=== PATIENT | male | born 1960 | race Caucasian/White ===

== ENCOUNTER 2017-03-03 09:39 | Emergency (ER) | payer BC ==
[~2017-03-03] VITALS: Ht 167.6 cm; Wt 105.1 kg
[~2017-03-03 09:39] MED LIST: ALPR2TAB2 PO; CITA20TA9 PO; ESOM20CA PO; HYDR-2164 PO; HYDR1TAB73 PO; HYDR20TA20 PO; LABE100T PO; LORA0.5T2 PO; LOVA20TA71 PO; METH20TA; NICO2LOZ PO; OMEP-29 PO; TRAZ-173 PO
[2017-03-03 09:42] VITALS: TEMP 98.5; Ht 167.6 cm; Wt 105.1 kg
--- OUTSIDE RECORDS SUMMARY | 2017-03-03 09:44 | XMS REPORT | Referral Summary ---
Author Organization Unknown Address Unknown Phone Unavailable Care Team Providers Care Websphere Commerce Architect Name Role Phone Chito Bobby Primary Care Physician [phone] Encounter VC Date(s): 01/06/15 - 01/06/15 [facility] [address] [place] [address] Dr Willson [place] [id number] Discharge Diagnosis: Obesity Discharge Diagnosis: Acute depression Discharge Diagnosis: Benign essential hypertension Discharge Disposition: Home or Self Care Attending Physician: Rafael Bobby MD Admitting Physician: Rafael Bobby MD Vital Signs Most recent to 1 oldest [Reference Range]: Blood Pressure 130/90 mmHg [90-140/60-90 mmHg] (01/06/15 3:37 PM) Problem List Condition Effective Dates Status Health Status Informant Benign essential Active hypertension(Confirm ed) Degeneration of Active lumbar or lumbosacral intervertebral disc(Confirmed) Displacement of Active lumbar intervertebral disc without myelopathy (disorder)(Confirmed ) 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) Hyperlipidemia(Confi Active rmed) Elevated blood Active sugar(Confirmed) Low back pain Active (finding)(Confirmed) Lumbosacral Active spondylosis(Confirme d) Obesity(Confirmed) Active patient Lumbar disc Active herniation(Confirmed ) Spinal stenosis of Active lumbar region without neurogenic claudication(Confirm ed) Thoracic or Active lumbosacral neuritis or radiculitis, unspecified(Confirme d) Allergies, Adverse Reactions, Alerts Substance Reaction Severity Status penicillin Hives/Skin Rash Active Medications Ambien 10 mg oral tablet 1 tabs, Oral, Bedtime (once a day), as needed for sleep, MUST LAST 30 DAYS, # 30 tabs, 0 Refill(s) Special Instructions: MUST LAST 30 DAYS Start Date: 04/20/14 Status: Ordered Fish Oil 1000 mg oral capsule 1 caps, Oral, Daily, 0 Refill(s) Start Date: 04/15/14 Status: Ordered gabapentin 300 mg oral capsule 1 caps, Oral, TID, # 90 caps, 0 Refill(s), Pharmacy: [facility] #[id number], 1 caps Oral TID Start Date: 09/14/14 Status: Ordered hydrochlorothiazide 25 mg oral tablet 1 tabs, Oral, Daily, # 90 tabs, 1 Refill(s), Pharmacy: [facility] #[id number] , 1 tabs Oral Daily Start Date: 04/16/14 Status: Ordered labetalol 100 mg oral tablet 1 tabs, Oral, BID, # 60 tabs, 0 Refill(s), Pharmacy: [facility] #[id number], 1 tabs Oral BID Start Date: 12/09/14 Status: Ordered Mevacor 20 mg oral tablet 1 tabs, Oral, Daily, # 90 tabs, 1 Refill(s), Pharmacy: [facility] #[id number] , 1 tabs Oral Daily Start Date: 10/30/14 Status: Ordered [place] 10 mg-325 mg oral tablet 1 tabs, Oral, q6hr, as needed for pain, # 30 tabs, 0 Refill(s) Start Date: 09/22/14 Status: Ordered omeprazole 20 mg oral delayed release capsule 1 caps, Oral, Daily, 0 Refill(s) Start Date: 04/15/14 Status: Ordered traMADol 50 mg oral tablet 1 tabs, Oral, q4hr, s. dillons, # 100 tabs, 0 Refill(s) Special Instructions: s. dillons Start Date: 10/26/14 Status: Ordered Victoza 18 mg/3 mL subcutaneous solution 0.6 mg, SubCutaneous, Daily, # 3 mL, 0 Refill(s), samples given to patient (Rx) Start Date: 12/08/14 Status: Ordered Results No data available for this section Immunizations No data available for this section Procedures Procedure Date Related Diagnosis Body Site Left L2-3 Transforaminal 09/30/14 Left L4-5 Transforaminal 09/15/14 Left L4-5 Transforaminal 05/12/14 Procedure/Right L4-5 transforaminal 08/19/13 Carpal tunnel release Repair/hernia1 1right inguinal hernia 1975 and 1979 left inguinal hernia 1976 umbilical herniorrhaphy-12/23/2008 Social History Social History Type Response Smoking Status Former smoker Assessment and Plan Extracted from: Title: Ambulatory Patient Education Author: Rafael Bobby MD Date: 09/12 Family Medicine Arterial Hypertension Arterial hypertension (high blood pressure ) is a condition of elevated pressure in your blood vessels. Hypertension over a long period of time is a risk factor for strokes, heart attacks, and heart failure. It is also the leading cause of kidney (renal ) failure. CAUSES In Adults -- Over 90% of all hypertension has no known cause. This is called essential or primary hypertension. In the other 10% of people with hypertension, the increase in blood pressure is caused by another disorder. This is called secondary hypertension . Important causes of secondary hypertension are: Heavy alcohol use. Obstructive sleep apnea. Hyperaldosterosim (Conn's syndrome). Steroid use. Chronic kidney failure. Hyperparathyroidism. Medications. Renal artery stenosis. Pheochromocytoma. [place]'s disease. Coarctation of the aorta. Scleroderma renal crisis. Licorice (in excessive amounts). Drugs (cocaine, methamphetamine). Your caregiver can explain any items above that apply to you. In Children -- Secondary hypertension is more common and should always be considered. -- Few women of childbearing age have high blood pressure. However, up to 10% of them develop hypertension of . Generally, this will not harm the woman. It may be a sign of 3 complications of : preeclampsia, HELLP syndrome, and eclampsia. Follow up and control with medication is necessary. SYMPTOMS This condition normally does not produce any noticeable symptoms. It is usually found during a routine exam. Malignant hypertension is a late problem of high blood pressure. It may have the following symptoms: Headaches. Blurred vision. End-organ damage (this means your kidneys, heart, lungs, and other organs are being damaged). Stressful situations can increase the blood pressure. If a person with normal blood pressure has their blood pressure go up while being seen by their caregiver, this is often termed "white coat hypertension." Its importance is not known. It may be related with eventually developing hypertension or complications of hypertension. Hypertension is often confused with mental tension, stress, and anxiety. DIAGNOSIS The diagnosis is made by 3 separate blood pressure measurements. They are taken at least 1 week apart from each other. If there is organ damage from hypertension, the diagnosis may be made without repeat measurements. Hypertension is usually identified by having blood pressure readings: Above 140/90 mmHg measured in both arms, at 3 separate times, over a couple weeks. Over 130/80 mmHg should be considered a risk factor and may require treatment in patients with diabetes. Blood pressure readings over 120/80 mmHg are called "pre-hypertension" even in non-diabetic patients. To get a true blood pressure measurement, use the following guidelines. Be aware of the factors that can alter blood pressure readings. Take measurements at least 1 hour after caffeine. Take measurements 30 minutes after smoking and without any stress. This is another reason to quit smoking it raises your blood pressure. Use a proper cuff size. Ask your caregiver if you are not sure about your cuff size. Most home blood pressure cuffs are automatic. They will measure systolic and diastolic pressures. The systolic pressure is the pressure reading at the start of sounds. Diastolic pressure is the pressure at which the sounds disappear. If you are elderly, measure pressures in multiple postures. Try sitting, lying or standing. Sit at rest for a minimum of 5 minutes before taking measurements. You should not be on any medications like decongestants. These are found in many cold medications. Record your blood pressure readings and review them with your caregiver. If you have hypertension: Your caregiver may do tests to be sure you do not have secondary hypertension (see "causes" above). Your caregiver may also look for signs of metabolic syndrome. This is also called Syndrome X or Insulin Resistance Syndrome. You may have this syndrome if you have type 2 diabetes, abdominal obesity, and abnormal blood lipids in addition to hypertension. Your caregiver will take your medical and family history and perform a physical exam. Diagnostic tests may include blood tests (for glucose, cholesterol, potassium, and kidney function), a urinalysis, or an EKG. Other tests may also be necessary depending on your condition. PREVENTION There are important lifestyle issues that you can adopt to reduce your chance of developing hypertension: Maintain a normal weight. Limit the amount of salt (sodium ) in your diet. Exercise often. Limit alcohol intake. Get enough potassium in your diet. Discuss specific advice with your caregiver. Follow a DASH diet (dietary approaches to stop hypertension). This diet is rich in fruits, vegetables, and low-fat dairy products, and avoids certain fats. PROGNOSIS Essential hypertension cannot be cured. Lifestyle changes and medical treatment can lower blood pressure and reduce complications. The prognosis of secondary hypertension depends on the underlying cause. Many people whose hypertension is controlled with medicine or lifestyle changes can live a normal, healthy life. RISKS AND COMPLICATIONS While high blood pressure alone is not an illness, it often requires treatment due to its short- and long-term effects on many organs. Hypertension increases your risk for: CVAs or strokes (cerebrovascular accident ). Heart failure due to chronically high blood pressure (hypertensive cardiomyopathy ). Heart attack (myocardial infarction ). Damage to the retina (hypertensive retinopathy ). Kidney failure (hypertensive nephropathy ). Your caregiver can explain list items above that apply to you. Treatment of hypertension can significantly reduce the risk of complications. TREATMENT For overweight patients, weight loss and regular exercise are recommended. Physical fitness lowers blood pressure. Mild hypertension is usually treated with diet and exercise. A diet rich in fruits and vegetables, fat-free dairy products, and foods low in fat and salt (sodium ) can help lower blood pressure. Decreasing salt intake decreases blood pressure in a 1/3 of people. Stop smoking if you are a smoker. The steps above are highly effective in reducing blood pressure. While these actions are easy to suggest, they are difficult to achieve. Most patients with moderate or severe hypertension end up requiring medications to bring their blood pressure down to a normal level. There are several classes of medications for treatment. Blood pressure pills (antihypertensives ) will lower blood pressure by their different actions. Lowering the blood pressure by 10 mmHg may decrease the risk of complications by as much as 25%. The goal of treatment is effective blood pressure control. This will reduce your risk for complications. Your caregiver will help you determine the best treatment for you according to your lifestyle. What is excellent treatment for one person, may not be for you. HOME CARE INSTRUCTIONS Do not smoke. Follow the lifestyle changes outlined in the "Prevention" section. If you are on medications, follow the directions carefully. Blood pressure medications must be taken as prescribed. Skipping doses reduces their benefit. It also puts you at risk for problems. Follow up with your caregiver, as directed. If you are asked to monitor your blood pressure at home, follow the guidelines in the "Diagnosis" section above. SEEK MEDICAL CARE IF: You think you are having medication side effects. You have recurrent headaches or lightheadedness. You have swelling in your ankles. You have trouble with your vision. SEEK IMMEDIATE MEDICAL CARE IF: You have sudden onset of chest pain or pressure, difficulty breathing, or other symptoms of a heart attack. You have a severe headache. You have symptoms of a stroke (such as sudden weakness, difficulty speaking , difficulty walking). MAKE SURE YOU: Understand these instructions. Will watch your condition. Will get help right away if you are not doing well or get worse. Document Released: 10/15/2006 Document Revised: 01/06/2013 Document Reviewed: ExitCare Patient Information 2014 [employer]. No follow up information was provided. Extracted from: Title: Office Visit Note Author: Rafael Bobby MD Date: 01/06/15 Assessment/Plan Acute depression To Dr. Chance Cervantes for evaluation. The patient was not interested in being seen locally. Benign essential hypertension This issue is stable and appropriate refills, lab, and f/u have been discussed. The patient reports their blood pressure has been stable at home and is not having any significant or related problems. There has been no chest pain, chest pressure, soa/ruiz. Obesity This issue is stable and appropriate refills, lab, and f/u have been discussed. Samples of victoza given. Use as directed.
--- OUTSIDE RECORDS SUMMARY | 2017-03-03 09:44 | XMS REPORT | Referral Summary ---
Author Author [facility] Organization [facility] Address Unknown Phone Unavailable Care Team Providers Care It Technician Name Role Phone Chito Bobby Primary Care Physician [phone] Encounter VC Date(s): 05/10/15 - 05/10/15 [facility], [address] [place] [id number] Discharge Diagnosis: SCREENING FOR MALIGNANT NEOPLASMS OF PROSTATE Discharge Disposition: 01-Home or Self Care Attending Physician: Rafael Bobby MD Admitting Physician: Rafael Bobby MD Vital Signs Most recent to 1 oldest [Reference Range]: Blood Pressure 120/80 mmHg [90-140/60-90 mmHg] (05/10/15 11:06 AM) Problem List Condition Effective Dates Status Health Status Informant Benign essential Active hypertension(Confirm ed) Degeneration of Active lumbar or lumbosacral intervertebral disc(Confirmed) Depression(Confirmed Active ) Displacement of Active lumbar intervertebral disc without myelopathy (disorder)(Confirmed ) Shortness of Active breath(Confirmed) GERD without Active esophagitis(Confirme d) Glossitis(Confirmed) Active 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) Hyperlipidemia(Confi Active rmed) Elevated blood Active sugar(Confirmed) Low back pain Active (finding)(Confirmed) Lumbosacral Active spondylosis(Confirme d) Medial epicondylitis Active of right elbow(Confirmed) Medial epicondylitis Active of right elbow(Confirmed) Metatarsalgia(Confir Active med) Obesity(Confirmed) Active patient Obsession(Confirmed) Active Priapism(Confirmed) Active Lumbar disc Active herniation(Confirmed ) Rhinitis Active medicamentosa(Confir med) Spinal stenosis of Active lumbar region without neurogenic claudication(Confirm ed) Thoracic or Active lumbosacral neuritis or radiculitis, unspecified(Confirme d) Tinea Active pedis(Confirmed) Allergies, Adverse Reactions, Alerts Substance Reaction Severity Status penicillin Hives/Skin Rash Active Medications CeleXA 40 mg, Oral, Daily, from pv, 0 Refill(s) Start Date: 05/10/15 Status: Ordered clindamycin 300 mg oral capsule 300 mg 1 caps, Oral, q8hr, X 7 days, # 21 caps, 0 Refill(s), Pharmacy: [facility] #[id number], 1 caps Oral q8hr,x7 days Start Date: 11/19/15 Stop Date: 11/26/15 Status: Ordered diphenhydrAMINE/lidocaine/aluminum hydroxide/magnesium hydroxide/simethicone mucous membrane susp See Instructions, Mouth Sores, Swish and spit 5cc Q6H prn mouth pain., # 120 mL , 0 Refill(s), Pharmacy: [facility] #[id number] Start Date: 11/19/15 Status: Ordered Fish Oil 1000 mg oral capsule 1 caps, Oral, Daily, 0 Refill(s) Start Date: 04/15/14 Status: Ordered hydrochlorothiazide 25 mg oral tablet See Instructions, TAKE ONE TABLET BY MOUTH ONCE A DAY, # 90 tabs, 1 Refill(s), eRx: [facility] #[id number], TAKE ONE TABLET BY MOUTH ONCE A DAY Start Date: 05/24/15 Status: Ordered labetalol 100 mg oral tablet See Instructions, TAKE ONE TABLET BY MOUTH TWICE A DAY, # 180 tabs, 1 Refill(s) , eRx: [facility] #[id number], TAKE ONE TABLET BY MOUTH TWICE A DAY Start Date: 05/13/15 Status: Ordered Mevacor 20 mg oral tablet See Instructions, TAKE ONE TABLET BY MOUTH DAILY, # 90 tabs, 1 Refill(s), eRx: [facility] #[id number], TAKE ONE TABLET BY MOUTH DAILY Start Date: 11/16/15 Status: Ordered PriLOSEC 40 mg oral delayed release capsule 40 mg 1 caps, Oral, Daily, # 90 caps, 0 Refill(s), Pharmacy: [facility] # [id number], 1 caps Oral Daily Start Date: 11/01/15 Status: Ordered traZODone 150 mg oral tablet 75 mg 0.5 tabs, Oral, Bedtime (once a day), from pv, 0 Refill(s) Start Date: 05/10/15 Status: Ordered Victoza 18 mg/3 mL subcutaneous solution 0.6 mg, SubCutaneous, Daily, # 3 mL, 1 Refill(s), samples given to patient (Rx) Start Date: 11/01/15 Stop Date: 12/31/15 Status: Ordered Vistaril 25 mg oral capsule 25 mg 1 caps, Oral, QID, as needed for anxiety, from pv doc, # 40 caps, 0 Refill (s) Start Date: 08/19/15 Status: Ordered Results Chemistry Most recent to 1 oldest [Reference Range]: PSA (wihout Reflex 1.3 ng/mL 1 Free) [0.0-3.5 (05/10/15 11:35 AM) ng/mL] 1Result Comment: AUA PSA Best Practice Guidelines: Age-Adjusted PSA Values by Ethnic Group Age Range Asians - Caucasians Americans 40-49 0-2.0 0-2.0 0-2.5 50-59 0-3.0 0-4.0 0-3.5 60-69 0-4.0 0-4.5 0-4.5 70-79 0-5.0 0-5.5 0-6.5 Immunizations No data available for this section Procedures Procedure Date Related Diagnosis Body Site Collection of venous blood by venipuncture 05/10/15 Left L2-3 Transforaminal 09/30/14 Left L4-5 Transforaminal 09/15/14 Left L4-5 Transforaminal 05/12/14 Procedure/Right L4-5 transforaminal 08/19/13 Carpal tunnel release Repair/hernia1 1right inguinal hernia 1975 and 1979 left inguinal hernia 1976 umbilical herniorrhaphy-12/23/2008 Social History Social History Type Response Smoking Status Former smoker Assessment and Plan Extracted from: Title: Ambulatory Patient Education Author: Rafael Bobby MD Date: Family Medicine Arterial Hypertension Arterial hypertension (high [...] failure. Hyperparathyroidism. Medications. Renal artery stenosis. Pheochromocytoma. [place]'s disease. Coarctation of the aorta. Scleroderma renal [...] 01/06/2013 Document Reviewed: ExitCare Patient Information 2014 [employer]. No follow up information was provided. Extracted from: Title: Office Visit Note Author: Rafael Bobby MD Date: 05/10/15 Assessment/Plan Benign essential hypertension This issue is stable and appropriate refills, lab, and f/u have been discussed. Much improved with wt loss and mood stailization. Depression This issue is stable and appropriate refills, lab, and f/u have been discussed. Seeing PV. Doing well and much better on meds. GERD without esophagitis This issue is stable and appropriate refills, lab, and f/u have been discussed. Hyperlipidemia This issue is stable and appropriate refills, lab, and f/u have been discussed. Metatarsalgia This issue is stable and appropriate refills, lab, and f/u have been discussed. Hand out given. Denies back pain. Obesity Samples and coupon given for victoza. Really likes and improves with victoza per him. Shortness of breath Anxiety? Discussed cardiac work up and consult and that was declined for now. Discussed and inhaler and that wasdeferrredfor now. CXR pending. Consider cardiac consult if not resolving, however much better per him in the last few days.
--- OUTSIDE RECORDS SUMMARY | 2017-03-03 09:44 | XMS REPORT | Referral Summary ---
Author Author [facility] Organization [facility] Address Unknown Phone Unavailable Care Team Providers Care Director Strategic Planning Name Role Phone Chito Bobby Primary Care Physician [phone] Encounter VC Date(s): 11/03/15 - 11/03/15 [facility] [id number] [address] [facility] Discharge Disposition: 01-Home or Self Care Attending Physician: Aubrey Butts MD Admitting Physician: Aubrey Butts MD Referring Physician: Aubrey Butts MD Vital Signs No data available for this section Problem List Condition Effective Dates Status Health Status Informant Benign essential Active hypertension(Confirm ed) Degeneration of Active lumbar or lumbosacral intervertebral disc(Confirmed) Depression(Confirmed Active ) Displacement of Active lumbar intervertebral disc without myelopathy (disorder)(Confirmed ) Shortness of Active breath(Confirmed) GERD without Active esophagitis(Confirme d) Glossitis(Confirmed) Active 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) Hyperlipidemia(Confi Active rmed) Elevated blood Active sugar(Confirmed) Low back pain Active (finding)(Confirmed) Lumbosacral Active spondylosis(Confirme d) Medial epicondylitis Active of right elbow(Confirmed) Metatarsalgia(Confir [...] 0 Refill(s) Start Date: 05/10/15 Status: Ordered Fish Oil 1000 mg oral capsule 1 caps, Oral, Daily, 0 Refill(s) Start Date: 04/15/14 Status: Ordered hydrochlorothiazide 25 mg oral tablet See Instructions, TAKE ONE TABLET BY MOUTH ONCE A DAY, # 90 tabs, 1 Refill(s), eRx: [facility] #[id number], TAKE ONE TABLET BY MOUTH ONCE A DAY Start Date: 05/24/15 Status: Ordered labetalol 100 mg oral tablet See Instructions, TAKE ONE TABLET BY MOUTH TWICE A DAY, # 180 tabs, 1 Refill(s) , eRx: [facility] #[id number], TAKE ONE TABLET BY MOUTH TWICE A DAY Start Date: 05/13/15 Status: Ordered Mevacor 20 mg oral tablet See Instructions, TAKE ONE TABLET BY MOUTH DAILY, # 90 tabs, 1 Refill(s), eRx: [facility] #[id number], TAKE ONE TABLET BY MOUTH DAILY Start Date: 05/17/15 Status: Ordered PriLOSEC 40 mg oral delayed release capsule 40 mg 1 caps, Oral, Daily, # 90 caps, 0 Refill(s), Pharmacy: [facility] # [id number], 1 caps Oral Daily Start Date: 11/01/15 [...] (s) Start Date: 08/19/15 Status: Ordered Results No data available for [...] Smoking Status Former smoker Assessment and Plan No data available for this section
--- OUTSIDE RECORDS SUMMARY | 2017-03-03 09:44 | XMS REPORT | Referral Summary ---
Author Author [facility] Organization [facility] Address Unknown Phone Unavailable Care Team Providers Care Manager Community Outreach Name Role Phone Michellegiovanna Chito Primary Care Physician [phone] Encounter [facility] [id number] Date(s): 12/27/15 - 12/27/15 [facility] [address] [facility] [address] [place], [place] [address] Discharge Diagnosis: Medial epicondylitis of right elbow Discharge Disposition: 01-Home or Self Care Attending Physician: Aubrey Butts MD Admitting Physician: Aubrey Butts MD Vital Signs No data available for this section Problem List Condition Effective Dates Status Health Status Informant Benign essential Active hypertension(Confirm ed) Degeneration of Active lumbar or lumbosacral intervertebral disc(Confirmed) Depression(Confirmed Active ) Displacement of Active lumbar intervertebral disc without myelopathy (disorder)(Confirmed ) Shortness of Active breath(Confirmed) GERD without Active esophagitis(Confirme d) Glossitis(Confirmed) 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) Hyperlipidemia(Confi Active rmed) Elevated blood [...] DAY, # 90 tabs, 1 Refill(s), eRx: [facility] #[id number], TAKE ONE TABLET BY MOUTH ONCE A DAY Start Date: 05/24/15 Status: Ordered labetalol 100 mg oral tablet See Instructions, TAKE ONE TABLET BY MOUTH TWICE A DAY, # 180 tabs, 1 Refill(s) , eRx: [facility] #[id number], TAKE ONE TABLET BY MOUTH TWICE A DAY Start Date: 05/13/15 Status: Ordered meloxicam 15 mg oral tablet 15 mg 1 tabs, Oral, Daily, # 30 tabs, 0 Refill(s), Pharmacy: [facility] # [id number], 1 tabs Oral Daily Start Date: 12/27/15 Status: Ordered Mevacor 20 mg oral tablet See Instructions, TAKE ONE TABLET BY MOUTH DAILY, # 90 tabs, 1 Refill(s), eRx: [facility] #[id number], TAKE ONE TABLET BY MOUTH DAILY Start Date: 11/16/15 Status: Ordered PriLOSEC 40 mg oral delayed release capsule 40 mg 1 caps, Oral, Daily, # 90 caps, 0 Refill(s), Pharmacy: [facility] # [id number], 1 caps Oral Daily Start Date: 11/01/15 Status: Ordered traZODone 150 mg oral tablet 75 mg 0.5 tabs, Oral, Bedtime (once a day), from pv, 0 Refill(s) Start Date: 05/10/15 Status: Ordered Results No data available for [...] smoker Assessment and Plan Extracted from: Title: Office Visit Note Author: Aubrey Butts MD Date: 12/27/15 Assessment/Plan Medial epicondylitis of right elbow A 15 minute discussion was held today with the patient at bedside regarding further management. The pertinent exam findingswere reviewed and all questions were answered. At this point, I suspected the patient has had a worsening of hismedial epicondylitis which seems to be resolving. However, it is still giving him some problemsand therefore I recommended continued treatment. Specifically, I recommended a trial of oral and inflammatory medications and a neoprene sleeveas he had been using the past. It don't have any activity restrictions for him and recommended he follow up as needed. Should his pain not resolve, or worsen, I would recommend an MRI arthrogram of the right elbow. He was understanding of my record patients and states she will comply.I answered all his questions today and counseledhimto contact the clinic with any questions may arise. Ordered: Office Visit Level 3 Est 80006
--- OUTSIDE RECORDS SUMMARY | 2017-03-03 09:44 | XMS REPORT | Referral Summary ---
Author Author [facility] Organization [facility] Address Unknown Phone Unavailable Care Team Providers Care Director Of Field Sales Name Role Phone Chito Bobby Primary Care Physician [phone] Encounter [facility] Date(s): 01/20/16 - 01/20/16 [facility] [address] [place] [id number] Discharge Diagnosis: Acute pain of left knee Discharge Disposition: 01-Home or Self Care Attending Physician: Jeanine Cain PA-C Admitting Physician: Jeanine Cain PA-C Vital Signs Most recent to 1 oldest [Reference Range]: Peripheral Pulse 72 bpm Rate [60-100 bpm] (01/20/16 8:43 AM) Respiratory Rate 18 br/min [14-20 br/min] (01/20/16 8:43 AM) Blood Pressure 132/80 mmHg [90-140/60-90 mmHg] (01/20/16 8:43 AM) Problem List Condition Effective Dates Status Health Status Informant Benign essential Active hypertension(Confirm ed) Degeneration of Active lumbar or lumbosacral intervertebral disc(Confirmed) Depression(Confirmed Active ) Displacement of Active lumbar intervertebral disc without myelopathy (disorder)(Confirmed ) Shortness of Active breath(Confirmed) GERD without Active esophagitis(Confirme d) Glossitis(Confirmed) 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 #[id number], TAKE ONE TABLET BY MOUTH ONCE A DAY Start Date: 05/24/15 Status: Ordered labetalol 100 mg oral tablet See Instructions, TAKE ONE TABLET BY MOUTH TWICE A DAY, # 180 tabs, eRx: [facility] #[id number], TAKE ONE TABLET BY MOUTH TWICE A DAY Start Date: 12/29/15 Status: Ordered meloxicam 15 mg oral tablet 15 mg 1 tabs, Oral, Daily, # 30 tabs, 0 Refill(s), Pharmacy: [facility] # [id number], 1 tabs Oral Daily Start Date: 12/27/15 Status: Ordered Mevacor 20 mg oral tablet See Instructions, TAKE ONE TABLET BY MOUTH DAILY, # 90 tabs, 1 Refill(s), eRx: [facility] #[id number], TAKE ONE TABLET BY MOUTH DAILY Start Date: 11/16/15 Status: Ordered Parrish 5 mg-325 mg oral tablet 1 tabs, Oral, Bedtime (once a day), as needed for pain, One time script. Not refillable., # 10 tabs, 0 Refill(s) Start Date: 01/20/16 Status: Ordered PriLOSEC 40 mg oral delayed release capsule 40 mg 1 caps, Oral, Daily, # 90 caps, 0 Refill(s), Pharmacy: [facility] # [id number], 1 caps Oral Daily Start Date: 11/01/15 [...] Extracted from: Title: Ambulatory Patient Education Author: Jeanine Cain PA-C Date : 01/20/16 Family Medicine Knee Pain Knee pain is a very common symptom and can have many causes. Knee pain often goes away when you follow your health care provider's instructions for relieving pain and discomfort at home. However, knee pain can develop into a condition that needs treatment. Some conditions may include: Arthritis caused by wear and tear (osteoarthritis). Arthritis caused by swelling and irritation (rheumatoid arthritis or gout ). A cyst or growth in your knee. An infection in your knee joint. An injury that will not heal. Damage, swelling, or irritation of the tissues that support your knee ( torn ligaments or tendinitis). If your knee pain continues, additional tests may be ordered to diagnose your condition. Tests may include X-rays or other imaging studies of your knee. You may also need to have fluid removed from your knee. Treatment for ongoing knee pain depends on the cause, but treatment may include: Medicines to relieve pain or swelling. Steroid injections in your knee. Physical therapy. Surgery. HOME CARE INSTRUCTIONS Take medicines only as directed by your health care provider. Rest your knee and keep it raised (elevated) while you are resting. Do not do things that cause or worsen pain. Avoid high-impact activities or exercises, such as running, jumping rope , or doing jumping jacks. Apply ice to the knee area: Put ice in a plastic bag. Place a towel between your skin and the bag. Leave the ice on for 20 minutes, 23 times a day. Ask your health care provider if you should wear an elastic knee support. Keep a pillow under your knee when you sleep. Lose weight if you are overweight. Extra weight can put pressure on your knee. Do not use any tobacco products, including cigarettes, chewing tobacco, or electronic cigarettes. If you need help quitting, ask your health care provider. Smoking may slow the healing of any bone and joint problems that you may have. SEEK MEDICAL CARE IF: Your knee pain continues, changes, or gets worse. You have a fever along with knee pain. Your knee rafiq or locks up. Your knee becomes more swollen. SEEK IMMEDIATE MEDICAL CARE IF: Your knee joint feels hot to the touch. You have chest pain or trouble breathing. This information is not intended to replace advice given to you by your health care provider. Make sure you discuss any questions you have with your health care provider. Document Released: 08/11/2008 Document Revised: 08/03/2015 Document Reviewed: [facility] Patient Information 2015 [employer] [place]. No follow up information was provided. Extracted from: Title: Office Visit Note- L knee Author: Jeanine Cain PA-C Date: pain Assessment/Plan Acute pain of left knee, Acute pain of left knee I think this is probably a MCL sprain/strain or medial meniscus injury (not complete tear). I advised the pt to rest the knee, use the knee brace, continue to ice and take Mobic and Tylenol for pain. He requests something stronger for pain to help him sleep at night. I d/w pt that with his history, I am only comfortable giving Tramadol or maybe Tylenol #3. Pt requests that I discuss with Dr. Bobby. After discussion, Dr. Bobby was agreeable to either Tramadol or #10 of Parrish as a one time fill. Pt would like the Parrish. This script was printed for pt, and he was instructed that he will not get another script for this. He is to rest the knee for about 2 weeks. If not improving by that time, we can get an MRI. Pt is agreeable with this plan and voiced understanding. Offered work note, but he declined. Ordered: Office Visit Level 4 Est [id number] Orders: HYDROcodone-acetaminophen, 1 tabs, Oral, Bedtime (once a day), as needed for pain, One time script. Not refillable., # 10 tabs, 0 Refill(s)
--- OUTSIDE RECORDS SUMMARY | 2017-03-03 09:44 | XMS REPORT | Referral Summary ---
Author Author [facility] Organization [facility] Address Unknown Phone Unavailable Care Team Providers Care Dehydrogenation Converter Operator Name Role Phone Chito Bobby Primary Care Physician [phone] Encounter [facility] Date(s): 11/01/15 - 11/01/15 [facility] [address] [place] [id number] Discharge Disposition: 01-Home or Self Care Attending Physician: Rafael Bobby MD Admitting Physician: Rafael Bobby MD Vital Signs Most recent to 1 oldest [Reference Range]: Blood Pressure 120/70 mmHg [90-140/60-90 mmHg] (11/01/15 3:24 PM) Problem List Condition Effective Dates Status Health Status Informant Benign essential Active hypertension(Confirm ed) Degeneration of Active lumbar or lumbosacral intervertebral disc(Confirmed) Depression(Confirmed Active ) Displacement of Active lumbar intervertebral disc without myelopathy (disorder)(Confirmed ) Shortness of Active breath(Confirmed) GERD without Active esophagitis(Confirme d) Glossitis(Confirmed) 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) Hyperlipidemia(Confi Active rmed) Elevated blood [...] DAY, # 90 tabs, 1 Refill(s), eRx: [facility] #[id number], TAKE ONE TABLET BY MOUTH ONCE A DAY Start Date: 05/24/15 Status: Ordered labetalol 100 mg oral tablet See Instructions, TAKE ONE TABLET BY MOUTH TWICE A DAY, # 180 tabs, 1 Refill(s) , eRx: [facility] #[id number], TAKE ONE TABLET BY MOUTH TWICE A DAY Start Date: 05/13/15 Status: Ordered Mevacor 20 mg oral tablet See Instructions, TAKE ONE TABLET BY MOUTH DAILY, # 90 tabs, 1 Refill(s), eRx: [facility] #[id number], TAKE ONE TABLET BY MOUTH DAILY Start Date: 05/17/15 Status: Ordered PriLOSEC 40 mg oral delayed release capsule 40 mg 1 caps, Oral, Daily, # 90 caps, 0 Refill(s), Pharmacy: [facility] # [id number], 1 caps Oral Daily Start Date: 11/01/15 [...] Oral, QID, as needed for anxiety, from doc, # 40 caps, 0 Refill (s) [...] Patient Education Author: Rafael Bobby MD Date: 11/01/15 Family Medicine Back Exercises Back exercises help treat and prevent back injuries. The goal of back exercises is to increase the strength of your abdominal and back muscles and the flexibility of your back. These exercises should be started when you no longer have back pain. Back exercises include: Pelvic Tilt. Lie on your back with your knees bent. Tilt your pelvis until the lower part of your back is against the floor. Hold this position 5 to 10 sec and repeat 5 to 10 times. Knee to Chest. Pull first 1 knee up against your chest and hold for 20 to 30 seconds, repeat this with the other knee, and then both knees. This may be done with the other leg straight or bent, whichever feels better. Sit-Ups or Curl-Ups. Bend your knees 90 degrees. Start with tilting your pelvis, and do a partial, slow sit-up, lifting your trunk only 30 to 45 degrees off the floor. Take at least 2 to 3 seconds for each sit-up. Do not do sit-ups with your knees out straight. If partial sit-ups are difficult, simply do the above but with only tightening your abdominal muscles and holding it as directed. Hip-Lift. Lie on your back with your knees flexed 90 degrees. Push down with your feet and shoulders as you raise your hips a couple inches off the floor; hold for 10 seconds, repeat 5 to 10 times. Back arches. Lie on your stomach, propping yourself up on bent elbows. Slowly press on your hands, causing an arch in your low back. Repeat 3 to 5 times. Any initial stiffness and discomfort should lessen with repetition over time. Shoulder-Lifts. Lie face down with arms beside your body. Keep hips and torso pressed to floor as you slowly lift your head and shoulders off the floor. Do not overdo your exercises, especially in the beginning. Exercises may cause you some mild back discomfort which lasts for a few minutes; however, if the pain is more severe, or lasts for more than 15 minutes, do not continue exercises until you see your caregiver. Improvement with exercise therapy for back problems is slow. See your caregivers for assistance with developing a proper back exercise program. Document Released: 11/22/2005 Document Revised: 01/06/2013 Document Reviewed: [employer] Patient Information 2015 [employer]. This information is not intended to replace advice given to you by your health care provider. Make sure you discuss any questions you have with your health care provider. No follow up information was provided. Extracted from: Title: Office Visit Note Author: Rafael Bobby MD Date: 11/01/15 Assessment/Plan Benign essential hypertension The patient's issue is nearly or completely resolved. There is no further issues or testing desired by them at this time. The patient reports their blood pressure has been stable at home and is not having any significant or related problems. There has been no chest pain, chest pressure, soa/ruiz. Depression This issue was reviewed, appears stable, and current therapy continued except as mentioned. Appropriate lab was reviewed from the most recent appropriate entry and lab was ordered if needed in the cpoe/nursing orders, and follow up recommended generally in 90 days and no later then six months. Mood stable and seeing PV. A work/school note was offered and deferred by the patient. Elevated blood sugar This issue was reviewed, appears stable, and current therapy continued except as mentioned. Appropriate lab was reviewed from the most recent appropriate entry and lab was ordered if needed in the cpoe/nursing orders, and follow up recommended generally in 90 days and no later then six months. Lab reviewed. GERD without esophagitis Resume prilosec 40mg po daily. Lumbar disc herniation This issue was reviewed, appears stable, and current therapy continued except as mentioned. Appropriate lab was reviewed from the most recent appropriate entry and lab was ordered if needed in the cpoe/nursing orders, and follow up recommended generally in 90 days and no later then six months. Back stable. Medial epicondylitis of right elbow Awaiting consult on Sunday for intervention and presumably a steroid injection. Obesity Diet and exercise as tolerated and feasible. Consider medication when interested. Samples of the new medication were provided as a courtesy. Side effects were discussed and follow up was recommended. Resume victoza .6mg sq daily. Rhinitis medicamentosa Stop otc afrin.Nasonex two puffs daily. Samples of the new medication were provided as a courtesy. Side effects were discussed and follow up was recommended. Samples given. Prednisone offered but makes him to edgy with psych history. Orders: liraglutide, 0.6 mg, SubCutaneous, Daily, # 3 mL, 1 Refill(s), samples given to patient (Rx) omeprazole, 40 mg 1 caps, Oral, Daily, # 90 caps, 0 Refill(s), Pharmacy: [facility] #[id number], 1 caps Oral Daily
--- OUTSIDE RECORDS SUMMARY | 2017-03-03 09:44 | XMS REPORT | Referral Summary ---
Author Author [facility] Organization [facility] Address Unknown Phone Unavailable Care Team Providers Care Merchandise Associate Name Role Phone Chito Bobby Primary Care Physician [phone] Encounter VC Date(s): 11/19/15 - 11/19/15 [facility] [address] [place] [id number] Discharge Diagnosis: Pain in mouth Discharge Disposition: 01-Home or Self Care Attending Physician: Jeanine Cain PA-C Admitting Physician: Jeanine Cain PA-C Vital Signs Most recent to 1 oldest [Reference Range]: Temperature Tympanic 34.7 degC [36.6-38.1 degC] *LOW* (11/19/15 11:16 AM) Peripheral Pulse 64 bpm Rate [60-100 bpm] (11/19/15 11:16 AM) Respiratory Rate 18 br/min [14-20 br/min] (11/19/15 11:16 AM) Blood Pressure 118/74 mmHg [90-140/60-90 mmHg] (11/19/15 11:16 AM) Problem List Condition Effective Dates Status Health Status Informant Benign essential Active hypertension(Confirm ed) Degeneration of Active lumbar or lumbosacral intervertebral disc(Confirmed) Depression(Confirmed Active ) Displacement of Active lumbar intervertebral disc without myelopathy (disorder)(Confirmed ) Shortness of Active breath(Confirmed) GERD without Active esophagitis(Confirme d) Glossitis(Confirmed) Active 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) Hyperlipidemia(Confi Active rmed) Elevated blood [...] days, # 21 caps, 0 Refill(s), Pharmacy: [facility] #[id number], 1 caps Oral q8hr,x7 days Start Date: 11/19/15 Stop Date: 11/26/15 Status: Ordered diphenhydrAMINE/lidocaine/aluminum hydroxide/magnesium hydroxide/simethicone mucous membrane susp See Instructions, Mouth Sores, Swish and spit 5cc Q6H prn mouth pain., # 120 mL , 0 Refill(s), Pharmacy: [facility] #[id number] Start Date: 11/19/15 Status: Ordered Fish Oil 1000 mg oral capsule 1 caps, Oral, Daily, 0 Refill(s) Start Date: 04/15/14 Status: Ordered hydrochlorothiazide 25 mg oral tablet See Instructions, TAKE ONE TABLET BY MOUTH ONCE A DAY, # 90 tabs, 1 Refill(s), eRx: [facility] #[id number], TAKE ONE TABLET BY MOUTH ONCE A DAY Start Date: 05/24/15 Status: Ordered labetalol 100 mg oral tablet See Instructions, TAKE ONE TABLET BY MOUTH TWICE A DAY, # 180 tabs, 1 Refill(s) , eRx: [facility] #[id number], TAKE ONE TABLET BY MOUTH TWICE A DAY Start Date: 05/13/15 Status: Ordered Mevacor 20 mg oral tablet See Instructions, TAKE ONE TABLET BY MOUTH DAILY, # 90 tabs, 1 Refill(s), eRx: [facility] #[id number], TAKE ONE TABLET BY MOUTH DAILY Start Date: 11/16/15 Status: Ordered PriLOSEC 40 mg oral delayed release capsule 40 mg 1 caps, Oral, Daily, # 90 caps, 0 Refill(s), Pharmacy: [facility] # [id number], 1 caps Oral Daily Start Date: 11/01/15 Status: Ordered traZODone 150 mg oral tablet 75 mg 0.5 tabs, Oral, Bedtime (once a day), from , 0 Refill(s) Start Date: 05/10/15 Status: Ordered [...] Education Author: Jeanine Cain PA-C Date : 11/19/15 Dentistry Dental Care and Dentist Visits Dental care supports good overall health. Regular dental visits can also help you avoid dental pain, bleeding, infection, and other more serious health problems in the future. It is important to keep the mouth healthy because diseases in the teeth, gums, and other oral tissues can spread to other areas of the body. Some problems, such as diabetes, heart disease, and pre-term labor have been associated with poor oral health. See your dentist every 6 months. If you experience emergency problems such as a toothache or broken tooth, go to the dentist right away. If you see your dentist regularly, you may catch problems early. It is easier to be treated for problems in the early stages. WHAT TO EXPECT AT A DENTIST VISIT Your dentist will look for many common oral health problems and recommend proper treatment. At your regular dental visit, you can expect: Gentle cleaning of the teeth and gums. This includes scraping and polishing. This helps to remove the sticky substance around the teeth and gums ( plaque). Plaque forms in the mouth shortly after eating. Over time, plaque hardens on the teeth as tartar. If tartar is not removed regularly, it can cause problems. Cleaning also helps remove stains. Periodic X-rays. These pictures of the teeth and supporting bone will help your dentist assess the health of your teeth. Periodic fluoride treatments. Fluoride is a natural mineral shown to help strengthen teeth. Fluoride treatmentinvolves applying a fluoride gel or varnish to the teeth. It is most commonly done in children. Examination of the mouth, tongue, jaws, teeth, and gums to look for any oral health problems, such as: Cavities (dental caries). This is decay on the tooth caused by plaque, sugar, and acid in the mouth. It is best to catch a cavity when it is small. Inflammation of the gums caused by plaque buildup (gingivitis). Problems with the mouth or malformed or misaligned teeth. Oral cancer or other diseases of the soft tissues or jaws. KEEP YOUR TEETH AND GUMS HEALTHY For healthy teeth and gums, follow these general guidelines as well as your dentist's specific advice: Have your teeth professionally cleaned at the dentist every 6 months. [place] twice daily with a fluoride toothpaste. Floss your teeth daily. Ask your dentist if you need fluoride supplements, treatments, or fluoride toothpaste. Eat a healthy diet. Reduce foods and drinks with added sugar. Avoid smoking. TREATMENT FOR ORAL HEALTH PROBLEMS If you have oral health problems, treatment varies depending on the conditions present in your teeth and gums. Your caregiver will most likely recommend good oral hygiene at each visit. For cavities, gingivitis, or other oral health disease, your caregiver will perform a procedure to treat the problem. This is typically done at a separate appointment. Sometimes your caregiver will refer you to another dental specialist for specific tooth problems or for surgery. SEEK IMMEDIATE DENTAL CARE IF: You have pain, bleeding, or soreness in the gum, tooth, jaw, or mouth area. A permanent tooth becomes loose or from the gum socket. You experience a blow or injury to the mouth or jaw area. Document Released: 06/26/2012 Document Revised: 01/06/2013 Document Reviewed: Exit[employer] Patient Information 2015 [employer] [facility]. This information is not intended to replace advice given to you by your health care provider. Make sure you discuss any questions you have with your health care provider. No follow up information was provided. Extracted from: Title: Office Visit Note- Mouth Author: Jeanine Cain PA-C Date: pain Assessment/Plan Pain in mouth D/w pt that I think he should have his dentist evaluate this area. I think it is more of a dental issue. At this time, will try some Magic Mouthwash to help with pain, and also start on Clindamycin. Pt advised that he may also take some Tylenol for pain as well. Keep area clean. Ordered: Office Visit Level 3 Est 27168 Orders: clindamycin, 300 mg 1 caps, Oral, q8hr, X 7 days, # 21 caps, 0 Refill( s), Pharmacy: [facility] #[id number], 1 caps Oral q8hr,x7 days diphenhyd/lidocaine/AlOH/MgOH/simeth topical, See Instructions, Mouth Sores, Swish and spit 5cc Q6H prn mouth pain., # 120 mL, 0 Refill(s), Pharmacy: [facility] #[id number]
--- OUTSIDE RECORDS SUMMARY | 2017-03-03 09:44 | XMS REPORT | Referral Summary ---
Author Author [facility] Organization [facility] Address Unknown Phone Unavailable Care Team Providers Care Tankerman Name Role Phone Chito Bobby Primary Care Physician [phone] Encounter VC Date(s): 08/19/15 - 08/19/15 [facility], [address] [place] [id number] Discharge Disposition: 01-Home or Self Care Attending Physician: Rafael Bobby MD Admitting Physician: Rafael Bobby MD Vital Signs Most recent to 1 oldest [Reference Range]: Blood Pressure 140/70 mmHg [90-140/60-90 mmHg] (08/19/15 11:13 AM) Problem List Condition Effective Dates Status Health Status Informant Benign essential Active hypertension(Confirm ed) Degeneration of Active lumbar or lumbosacral intervertebral disc(Confirmed) Depression(Confirmed Active ) Displacement of Active lumbar intervertebral disc without myelopathy (disorder)(Confirmed ) Shortness of Active breath(Confirmed) GERD without Active esophagitis(Confirme d) 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) Hyperlipidemia(Confi Active rmed) Elevated blood Active sugar(Confirmed) Low back pain Active (finding)(Confirmed) Lumbosacral Active spondylosis(Confirme d) Metatarsalgia(Confir Active med) Obesity(Confirmed) Active patient Obsession(Confirmed) Active Priapism(Confirmed) Active Lumbar disc Active herniation(Confirmed ) Spinal stenosis of Active lumbar region without neurogenic claudication(Confirm ed) Thoracic or Active lumbosacral neuritis or radiculitis, unspecified(Confirme d) Tinea Active pedis(Confirmed) Allergies, Adverse Reactions, Alerts Substance Reaction Severity Status penicillin Hives/Skin Rash Active Medications CeleXA 40 mg, Oral, Daily, from pv, 0 Refill(s) Start Date: 05/10/15 Status: Ordered Diflucan 200 mg oral tablet 200 mg 1 tabs, Oral, Daily, X 5 days, # 5 tabs, 0 Refill(s), Pharmacy: [facility] #[id number], 1 tabs Oral Daily,x5 days Start Date: 08/19/15 Stop Date: 08/24/15 Status: Ordered Fish Oil 1000 mg oral capsule 1 caps, Oral, Daily, 0 Refill(s) Start Date: 04/15/14 Status: Ordered hydrochlorothiazide 25 mg oral tablet See Instructions, TAKE ONE TABLET BY MOUTH ONCE A DAY, # 90 tabs, 1 Refill(s), eRx: [facility] #[id number], TAKE ONE TABLET BY MOUTH ONCE A DAY Start Date: 05/24/15 Status: Ordered labetalol 100 mg oral tablet See Instructions, TAKE ONE TABLET BY MOUTH TWICE A DAY, # 180 tabs, 1 Refill(s) , eRx: [facility] #[id number], TAKE ONE TABLET BY MOUTH TWICE A DAY Start Date: 05/13/15 Status: Ordered Mevacor 20 mg oral tablet See Instructions, TAKE ONE TABLET BY MOUTH DAILY, # 90 tabs, 1 Refill(s), eRx: [facility] #[id number], TAKE ONE TABLET BY MOUTH DAILY Start Date: 05/17/15 Status: Ordered NexIUM 20 mg oral delayed release capsule 20 mg 1 caps, Oral, Daily, # 30 caps, 0 Refill(s) Start Date: 03/24/15 Status: Ordered predniSONE 20 mg oral tablet 20 mg 1 tabs, Oral, Daily, X 5 days, # 5 tabs, 0 Refill(s), Pharmacy: [facility] #[id number], 1 tabs Oral Daily,x5 days Start Date: 08/19/15 Stop Date: 08/24/15 Status: Ordered traZODone 150 mg oral tablet 75 mg 0.5 tabs, Oral, Bedtime (once a day), from pv, 0 Refill(s) Start Date: 05/10/15 Status: Ordered Vistaril 25 mg oral capsule 25 mg 1 caps, Oral, QID, as needed for anxiety, from pv doc, # 40 caps, 0 Refill (s) Start Date: 08/19/15 Status: Ordered Results Hematology Most recent to 1 oldest [Reference Range]: WBC [4.8-10.8 6.5 10*3/uL 10*3/uL] (08/19/15 11:40 AM) RBC [4.60-6.20] 5.09 (08/19/15:40 AM) Hgb [14.0-18.0 15.6 gm/dL gm/dL] (08/19/15 11:40 AM) Hct [42.0-52.0 %] 43.2 % (08/19/1540 AM) MCV [82.0-99.0 fL] 84.9 fL (08/19/15:40 AM) MCH [27.0-32.0 pg] 30.6 pg (08/19/15:40 AM) MCHC [32.0-36.0 36.1 gm/dL gm/dL] *HI* (08/19/15:40 AM) RDW [11.5-14.5 %] 12.8 % (08/19/15:40 AM) Platelet [150-400 168 10*3/uL 10*3/uL] (08/19/15 11:40 AM) MPV [8.8-14.8 fL] 11.5 fL (08/19/15 11:40 AM) Immature 0.0 % Granulocytes (08/19/15:40 AM) [0.0-1.0 %] Neutrophils [51-75 59 % %] (08/19/15 11:40 AM) Lymphocytes [20-46 33 % %] (08/19/15:40 AM) Monocytes [4-11 %] 6 % (08/19/15 11:40 AM) Eosinophils [0-4 %] 1 % (08/19/15 11:40 AM) Basophils [0-2 %] 1 % (08/19/15 11:40 AM) Neutro Absolute 3.82 10*3 [1.90-7.00 10*3] (08/19/15 11:40 AM) Lymph Absolute 2.15 10*3 [0.80-3.30 10*3] (08/19/15 11:40 AM) [place] Absolute 0.41 10*3 [0.30-1.00 10*3] (08/19/15 11:40 AM) Eos Absolute 0.09 10*3 [0.00-0.50 10*3] (08/19/15 11:40 AM) Baso Absolute 0.04 10*3 [0.00-0.20 10*3] (08/19/15:40 AM) Chemistry Most recent to 1 oldest [Reference Range]: Sodium Lvl [135-144 139 mEq/L mEq/L] (08/19/1540 AM) Potassium Lvl 4.3 mEq/L [3.5-5.2 mEq/L] (08/19/1540 AM) Chloride [99-111 105 mEq/L mEq/L] (08/19/1540 AM) CO2 [23-31 mEq/L] 27 mEq/L (08/19/1540 AM) AGAP [3-20] 7 (08/19/1540 AM) BUN [8-26 mg/dL] 25 mg/dL (08/19/1540 AM) Glucose Lvl [70-99 100 mg/dL mg/dL] *HI* (08/19/1540 AM) Creatinine Lvl 1.06 mg/dL [0.72-1.25 mg/dL] (08/19/15:40 AM) eGFR [>60 mL/min] >60 mL/min 1 (08/19/1540 AM) Calcium Lvl 9.4 mg/dL [8.9-10.5 mg/dL] (08/19/1540 AM) Albumin Lvl [3.5-5.0 4.2 gm/dL gm/dL] (08/19/1540 AM) Total Protein 7.0 gm/dL [6.4-8.3 gm/dL] (08/19/1540 AM) Globulin [1.8-4.0 2.8 gm/dL gm/dL] (08/19/1540 AM) ALT [0-55 U/L] 27 U/L (08/19/1540 AM) AST [5-34 U/L] 20 U/L (08/19/15:40 AM) Alk Phos [40-150 67 U/L U/L] (08/19/15 11:40 AM) Bili Total [0.2-1.2 0.6 mg/dL mg/dL] (08/19/15 11:40 AM) TSH with Reflex Free 0.96 T4 [0.35-4.94] (08/19/15 11:40 AM) Hgb A1c [4.1-5.6 %] 5.1 % (08/19/15 11:40 AM) eAvg Glucose 99.7 mg/dL (08/19/15 11:40 AM) 1Result Comment: Multiply eGFR results by 1.21 for race. Urinalysis Most recent to 1 oldest [Reference Range]: UA Color Yellow (08/19/15 12:52 PM) UA Appear Clear (08/19/15 12:52 PM) UA pH [5.0-8.0] 7.5 (08/19/15 12:52 PM) UA Leuk Est Negative [Negative] (08/19/15 12:52 PM) UA Nitrite Negative [Negative] (08/19/15 12:52 PM) UA Protein Negative [Negative] (08/19/15 12:52 PM) UA Glucose Negative [Negative] (08/19/15 12:52 PM) UA Ketones Negative [Negative] (08/19/15 12:52 PM) UA Urobilinogen 1.0 mg/dL [<1.0 mg/dL] (08/19/15 12:52 PM) UA Bili [Negative] Negative (08/19/15 12:52 PM) UA Blood [Negative] Negative (08/19/15 12:52 PM) UA Spec Grav 1.025 [1.003-1.030] (08/19/15 12:52 PM) Type Voided (08/19/15 12:52 PM) Immunizations No data available for this section Procedures Procedure Date Related Diagnosis Body Site Collection of venous blood by venipuncture 08/19/15 Left L2-3 Transforaminal 09/30/14 Left L4-5 Transforaminal 09/15/14 Left L4-5 Transforaminal 05/12/14 Procedure/Right L4-5 transforaminal 08/19/13 Carpal tunnel release Repair/hernia1 1right inguinal hernia 1975 and 1979 left inguinal hernia 1977 umbilical herniorrhaphy-12/23/2008 Social History Social History Type Response Smoking Status Former smoker Assessment and Plan Extracted from: Title: Ambulatory Patient Education Author: Rafael Bobby MD Date: Family Medicine Arthralgia Your caregiver has diagnosed you as suffering from an arthralgia. Arthralgia means there is pain in a joint. This can come from many reasons including: Bruising the joint which causes soreness (inflammation) in the joint. Wear and tear on the joints which occur as we grow older (osteoarthritis). Overusing the joint. Various forms of arthritis. Infections of the joint. Regardless of the cause of pain in your joint, most of these different pains respond to anti-inflammatory drugs and rest. The exception to this is when a joint is infected, and these cases are treated with antibiotics, if it is a bacterial infection. HOME CARE INSTRUCTIONS Rest the injured area for as long as directed by your caregiver. Then slowly start using the joint as directed by your caregiver and as the pain allows. Crutches as directed may be useful if the ankles, knees or hips are involved. If the knee was splinted or casted, continue use and care as directed. If an stretchy or elastic wrapping bandage has been applied today, it should be removed and re-applied every 3 to 4 hours. It should not be applied tightly, but firmly enough to keep swelling down. Watch toes and feet for swelling, bluish discoloration, coldness, numbness or excessive pain. If any of these problems (symptoms) occur, remove the beau bandage and re-apply more loosely. If these symptoms persist, contact your caregiver or return to this location. For the first 24 hours, keep the injured extremity elevated on pillows while lying down. Apply ice for 15-20 minutes to the sore joint every couple hours while awake for the first half day. Then 03-04 times per day for the first 48 hours. Put the ice in a plastic bag and place a towel between the bag of ice and your skin. Wear any splinting, casting, elastic bandage applications, or slings as instructed. Only take [id number] or prescription medicines for pain, discomfort, or fever as directed by your caregiver. Do not use aspirin immediately after the injury unless instructed by your physician. Aspirin can cause increased bleeding and bruising of the tissues. If you were given crutches, continue to use them as instructed and do not resume weight bearing on the sore joint until instructed. Persistent pain and inability to use the sore joint as directed for more than 2 to 3 days are warning signs indicating that you should see a caregiver for a follow-up visit as soon as possible. Initially, a hairline fracture (break in bone) may not be evident on X-rays. Persistent pain and swelling indicate that further evaluation, non-weight bearing or use of the joint (use of crutches or slings as instructed), or further X-rays are indicated. X-rays may sometimes not show a small fracture until a week or 10 days later. Make a follow-up appointment with your own caregiver or one to whom we have referred you. A radiologist (specialist in reading X-rays) may read your X-rays. Make sure you know how you are to obtain your X-ray results. Do not assume everything is normal if you do not hear from us. SEEK MEDICAL CARE IF: Bruising, swelling, or pain increases. SEEK IMMEDIATE MEDICAL CARE IF: Your fingers or toes are numb or blue. The pain is not responding to medications and continues to stay the same or get worse. The pain in your joint becomes severe. You develop a fever over 102 F (38.9 C). It becomes impossible to move or use the joint. MAKE SURE YOU: Understand these instructions. Will watch your condition. Will get help right away if you are not doing well or get worse. Document Released: 10/15/2006 Document Revised: 01/06/2013 Document Reviewed: [facility] Patient Information 2015 [employer] [facility]. This information is not intended to replace advice given to you by your health care provider. Make sure you discuss any questions you have with your health care provider. No follow up information was provided. Extracted from: Title: Office Visit Note Author: Rafael Bobby MD Date: 08/19/15 Assessment/Plan Benign essential hypertension This issue is stable and appropriate refills, lab, and f/u have been discussed. Current smoker Smoking Cessatin was discussed. The patient is welcome to f /u for therapy or medication for smoking cessation at any time that they are willing to quit. Stop the lonzenges for now. Depression This issue is stable and appropriate refills, lab, and f/u have been discussed. Elevated blood sugar This issue is stable and appropriate refills, lab, and f/ u have been discussed. Lab pending. Radha? Ordered: Hemoglobin A1c TSH with Reflex Free T4 GERD without esophagitis This issue is stable and appropriate refills, lab, and f/u have been discussed. Glossitis Trial of diflucan 200mg po daily for five daysfor possible glossitis. Prednisone 20mg po daily for five daysfor any irritant glossitis from the lozenges. A work/school note was offered and deferred by the patient. 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 There is no further issues or testing desired by them at this time. Obesity Diet and exercise as tolerated and feasible. Consider medication when interested. Right elbow pain Xray pending. Has the prednisone for pain for now. Spinal stenosis of lumbar region without neurogenic claudication This issue is stable and appropriate refills, lab, and f/u have been discussed. Tinea pedis Has the diflucan for now. Orders: fluconazole, 200 mg 1 tabs, Oral, Daily, X 5 days, # 5 tabs, 0 Refill( s), Pharmacy: [facility] #[id number], 1 tabs Oral Daily,x5 days predniSONE, 20 mg 1 tabs, Oral, Daily, X 5 days, # 5 tabs, 0 Refill(s), Pharmacy: [facility] #[id number], 1 tabs Oral Daily,x5 days CBC w/ Differential Comprehensive Metabolic Panel Urinalysis with Culture if Indicated XR Elbow 2 Views Right
--- OUTSIDE RECORDS SUMMARY | 2017-03-03 09:44 | XMS REPORT | Referral Summary ---
Author Author [facility] Organization [facility] Address Unknown Phone Unavailable Care Team Providers Care Ship Ceiler Name Role Phone Dante Posada Primary Care Physician [phone] Encounter Date(s): 08/16/16 - 08/16/16 [facility] [address] [address] [place], [place] [address] Discharge Diagnosis: Medial epicondylitis of left elbow Discharge Disposition: 01-Home or Self Care [...] GERD without Active esophagitis(Confirme d) Glossitis(Confirmed) Active Guillain-[place](Confi Active rmed) Hyperlipidemia(Confi Active rmed) Elevated blood [...] Status: Ordered hydrochlorothiazide 25 mg oral tablet 25 mg 1 tabs, Oral, Daily, # 90 tabs, 1 Refill(s), Pharmacy: [facility] # [id number], 1 tabs Oral Daily Start Date: 04/07/16 Status: Ordered labetalol 100 mg oral tablet 100 mg 1 tabs, Oral, BID, # 180 tabs, 1 Refill(s), Pharmacy: [facility] # [id number], 1 tabs Oral BID Start Date: 04/07/16 Status: Ordered meloxicam 15 mg oral tablet 15 mg 1 tabs, Oral, Daily, # 30 tabs, 0 Refill(s), Pharmacy: [facility] # [id number], 1 tabs Oral Daily Start Date: 12/27/15 Status: Ordered Mevacor 20 mg oral tablet See Instructions, TAKE ONE TABLET BY MOUTH DAILY, # 90 tabs, 1 Refill(s), eRx: [facility] #[id number], TAKE ONE TABLET BY MOUTH DAILY Start Date: 11/16/15 Status: Ordered PriLOSEC 40 mg oral delayed release capsule 40 mg 1 caps, Oral, Daily, # 90 caps, 0 Refill(s), Pharmacy: [facility] # [id number], 1 caps Oral Daily Start Date: 11/01/15 Status: Ordered traMADol 50 mg oral tablet 50 mg 1 tabs, Oral, q12hr, as needed for pain, sAng medina, # 60 tabs, 0 Refill(s ) Start Date: 07/12/16 Status: Ordered traZODone 150 mg oral tablet 75 mg 0.5 tabs, Oral, Bedtime (once a day), from pv, 0 Refill(s) Start Date: 05/10/15 Status: Ordered Results No data available for this section Immunizations No data available for this section Procedures Procedure Date Related Diagnosis Body Site Arthrocentesis, aspiration and/or injection, 08/16/16 intermediate joint or bursa (eg, temporomandibular, acromioclavicular, wrist, elbow or ankle, olecranon bursa); without ultrasound guidance Left L2-3 Transforaminal 09/30/14 Left L4-5 Transforaminal 09/15/14 Left L4-5 Transforaminal 05/12/14 Procedure/Right L4-5 transforaminal 08/19/13 Carpal tunnel release Repair/hernia1 1right inguinal hernia 1975 and 1979 left inguinal hernia 1976 umbilical herniorrhaphy-12/23/2008 Social History Social History Type Response Smoking Status Former smoker Assessment and Plan No data available for this section
--- OUTSIDE RECORDS SUMMARY | 2017-03-03 09:44 | XMS REPORT | Referral Summary ---
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[place] Discharge Disposition: Home or Self Care Attending Physician: Rafael Bobby MD Admitting Physician: Rafael Bobby MD Vital Signs Most recent to 1 oldest [Reference Range]: Blood Pressure 160/110 mmHg [90-140/60-90 mmHg] *HI* (12/08/14 3:54 PM) Problem List Condition Effective Dates Status Health Status Informant Benign essential Active hypertension(Confirm ed) Degeneration of Active lumbar or lumbosacral intervertebral disc(Confirmed) Displacement of Active lumbar intervertebral disc without myelopathy (disorder)(Confirmed ) 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) Hyperlipidemia(Confi Active rmed) Elevated blood [...] TID, # 90 caps, 0 Refill(s), Pharmacy: [facility] #[id number], 1 caps Oral TID Start Date: 09/14/14 Status: Ordered hydrochlorothiazide 25 mg oral tablet 1 tabs, Oral, Daily, # 90 tabs, 1 Refill(s), Pharmacy: [facility] #[id number] , 1 tabs Oral Daily Start Date: 04/16/14 Status: Ordered labetalol labetalol, See Instructions, 1 po bid, # 60 Each, 0 Refill(s), Pharmacy: [facility] #[id number], 1 po bid Special Instructions: 1 po bid Start Date: 12/08/14 Status: Ordered Mevacor 20 mg oral tablet 1 tabs, Oral, Daily, # 90 tabs, 1 Refill(s), Pharmacy: [facility] #[id number] , 1 tabs Oral Daily Start Date: 10/30/14 Status: Ordered [place]onier 10 mg-325 mg oral tablet 1 tabs, Oral, q6hr, as needed for pain, # 30 tabs, 0 Refill(s) Start Date: 09/22/14 Status: Ordered omeprazole 20 mg oral delayed release capsule 1 caps, Oral, Daily, 0 Refill(s) Start Date: 04/15/14 Status: Ordered traMADol 50 mg oral tablet 1 tabs, Oral, q4hr, giana medina, # 100 tabs, 0 Refill(s) Special Instructions: giana medina Start Date: 10/26/14 Status: Ordered Victoza 18 mg/3 mL subcutaneous solution 0.6 mg, SubCutaneous, Daily, # 3 mL, 0 Refill(s), samples given to patient (Rx) Start Date: 12/08/14 Status: Ordered Results Hematology Most recent to 1 oldest [Reference Range]: WBC [4.8-10.8 K/uL] 7.9 K/uL (12/08/14 4:30 PM) RBC [4.60-6.20 M/uL] 5.49 M/uL (12/08/14 4:30 PM) Hgb [14.0-18.0 16.3 gm/dL gm/dL] (12/08/14 4:30 PM) Hct [42.0-52.0 %] 45.8 % (12/08/14 4:30 PM) MCV [82.0-99.0 fL] 83.4 fL (12/08/14 4:30 PM) MCH [27.0-32.0 pg] 29.7 pg (12/08/14 4:30 PM) MCHC [32.0-36.0 35.6 gm/dL gm/dL] (12/08/14 4:30 PM) RDW [11.5-14.5 %] 12.8 % (12/08/14 4:30 PM) Platelet [150-400 187 K/uL K/uL] (12/08/14:30 PM) MPV [8.8-14.8 fL] 12.0 fL (12/08/14 4:30 PM) Immature 0.3 % Granulocytes (12/08/14:30 PM) [0.0-1.0 %] Neutrophils [51-75 54 % %] (12/08/14 4:30 PM) Lymphocytes [20-46 37 % %] (12/08/14 4:30 PM) Monocytes [4-11 %] 6 % (12/08/14 4:30 PM) Eosinophils [0-4 %] 1 % (12/08/14 4:30 PM) Basophils [0-2 %] 1 % (12/08/14 4:30 PM) Neutro Absolute 4.29 THOUS [1.90-7.00 THOUS] (12/08/14 4:30 PM) Lymph Absolute 2.91 THOUS [0.80-3.30 THOUS] (12/08/14 4:30 PM) Pacific Absolute 0.48 THOUS [0.30-1.00 THOUS] (12/08/14 4:30 PM) Eos Absolute 0.10 THOUS [0.00-0.50 THOUS] (12/08/14 4:30 PM) Baso Absolute 0.08 THOUS [0.00-0.20 THOUS] (12/08/14 4:30 PM) Chemistry Most recent to 1 oldest [Reference Range]: Sodium Lvl [135-144 139 mEq/L mEq/L] (12/08/14 4:30 PM) Potassium Lvl 3.8 mEq/L [3.5-5.2 mEq/L] (12/08/14 4:30 PM) Chloride [99-111 101 mEq/L mEq/L] (12/08/14 4:30 PM) CO2 [23-31 mEq/L] 26 mEq/L (12/08/14 4:30 PM) AGAP [3-20] 12 (12/08/14 4:30 PM) BUN [8-26 mg/dL] 15 mg/dL (12/08/14 4:30 PM) Glucose Lvl [70-99 87 mg/dL mg/dL] (12/08/14 4:30 PM) Creatinine Lvl 1.04 mg/dL [0.72-1.25 mg/dL] (12/08/14 4:30 PM) eGFR [>60 mL/min] >60 mL/min 1 (12/08/14 4:30 PM) Calcium Lvl 9.7 mg/dL [8.9-10.5 mg/dL] (12/08/14 4:30 PM) Albumin Lvl [3.5-5.0 4.6 gm/dL gm/dL] (12/08/14 4:30 PM) Total Protein 7.9 gm/dL [6.4-8.3 gm/dL] (12/08/14 4:30 PM) Globulin [1.8-4.0 3.3 gm/dL gm/dL] (12/08/14 4:30 PM) ALT [0-55 unit/L] 33 unit/L (12/08/14 4:30 PM) AST [5-34 unit/L] 24 unit/L (12/08/14 4:30 PM) Alk Phos [40-150 76 unit/L unit/L] (12/08/14 4:30 PM) Bili Total [0.2-1.2 0.6 mg/dL mg/dL] (12/08/14 4:30 PM) Chol [0-199 mg/dL] 201 mg/dL *HI* (12/08/14 4:30 PM) Trig [0-149 mg/dL] 394 mg/dL *HI* (12/08/14 4:30 PM) HDL [40-84 mg/dL] 33 mg/dL *LOW* (12/08/14 4:30 PM) LDL [0-130 mg/dL] 89 mg/dL (12/08/14 4:30 PM) VLDL Cholesterol 79 mg/dL [0-28 mg/dL] *HI* (12/08/14 4:30 PM) Cardiac Risk 6.1 [0.0-5.7] *HI* (12/08/14 4:30 PM) TSH with Reflex Free 2.60 T4 [0.35-4.94] (12/08/14 4:30 PM) Hgb A1c [4.1-5.6 %] 5.1 % (12/08/14 4:30 PM) eAvg Glucose 99.7 mg/dL (12/08/14 4:30 PM) 1Result Comment: Multiply eGFR results by 1.21 for race. Urinalysis Most recent to 1 oldest [Reference Range]: UA Color Yellow (12/08/14 12:55 PM) UA Appear Clear (12/08/14 12:55 PM) UA pH [5.0-8.0] 7.0 (12/08/14 12:55 PM) UA Leuk Est Negative [Negative] (12/08/14 12:55 PM) UA Nitrite Negative [Negative] (12/08/14 12:55 PM) UA Protein Negative [Negative] (12/08/14 12:55 PM) UA Glucose Negative [Negative] (12/08/14 12:55 PM) UA Ketones Negative [Negative] (12/08/14 12:55 PM) UA Urobilinogen 1.0 mg/dL [<1.0 mg/dL] (12/08/14 12:55 PM) UA Bili [Negative] Negative (12/08/14 12:55 PM) UA Blood [Negative] Negative (12/08/14 12:55 PM) UA Spec Grav 1.021 [1.003-1.030] (12/08/14 12:55 PM) Type Voided (12/08/14 12:55 PM) Immunizations No data available for this [...] Patient Education Author: Rafael Bobby MD Date: 08/12 Family Medicine Back Pain, Adult Low back pain is very common. About 1 in 5 people have back pain.The cause of low back pain is rarely dangerous. The pain often gets better over time.About half of people with a sudden onset of back pain feel better in just 2 weeks. About 8 in 10 people feel better by 6 weeks. CAUSES Some common causes of back pain include: Strain of the muscles or ligaments supporting the spine. Wear and tear (degeneration ) of the spinal discs. Arthritis. Direct injury to the back. DIAGNOSIS Most of the time, the direct cause of low back pain is not known.However, back pain can be treated effectively even when the exact cause of the pain is unknown.Answering your caregiver's questions about your overall health and symptoms is one of the most accurate ways to make sure the cause of your pain is not dangerous. If your caregiver needs more information, he or she may order lab work or imaging tests (X-rays or MRIs).However, even if imaging tests show changes in your back, this usually does not require surgery. HOME CARE INSTRUCTIONS For many people, back pain returns.Since low back pain is rarely dangerous, it is often a condition that people can learn to manageon their own. Remain active. It is stressful on the back to sit or exhauster engineer one place. Do not sit, drive, or exhauster engineer one place for more than 30 minutes at a time. Take short walks on level surfaces as soon as pain allows.Try to increase the length of time you walk each day. Do not stay in bed.Resting more than 1 or 2 days can delay your recovery. Do not avoid exercise or work.Your body is made to move.It is not dangerous to be active, even though your back may hurt.Your back will likely heal faster if you return to being active before your pain is gone. Pay attention to your body when you bend and lift. Many people have less discomfortwhen lifting if they bend their knees, keep the load close to their bodies,and avoid twisting. Often, the most comfortable positions are those that put less stress on your recovering back. Find a comfortable position to sleep. Use a firm mattress and lie on your side with your knees slightly bent. If you lie on your back, put a pillow under your knees. Only take nufx-ito-aowfnvu or prescription medicines as directed by your caregiver. Apwo-owc-yuylifc medicines to reduce pain and inflammation are often the most helpful.Your caregiver may prescribe muscle relaxant drugs.These medicines help dull your pain so you can more quickly return to your normal activities and healthy exercise. Put ice on the injured area. Put ice in a plastic bag. Place a towel between your skin and the bag. Leave the ice on for 15-20 minutes, 3-4 times a day for the first 2 to 3 days. After that, ice and heat may be alternated to reduce pain and spasms. Ask your caregiver about trying back exercises and gentle massage. This may be of some benefit. Avoid feeling anxious or stressed.Stress increases muscle tension and can worsen back pain.It is important to recognize when you are anxious or stressed and learn ways to manage it.Exercise is a great option. SEEK MEDICAL CARE IF: You have pain that is not relieved with rest or medicine. You have pain that does not improve in 1 week. You have new symptoms. You are generally not feeling well. SEEK IMMEDIATE MEDICAL CARE IF: You have pain that radiates from your back into your legs. You develop new bowel or bladder control problems. You have unusual weakness or numbness in your arms or legs. You develop nausea or vomiting. You develop abdominal pain. You feel faint. Document Released: 10/15/2006 Document Revised: 04/15/2013 Document Reviewed: ExitCare Patient Information 2014 [employer]. No follow up information was provided. Extracted from: Title: Office Visit Note Author: Rafael Bobby MD Date: 12/08/14 Assessment/Plan Elevated glucose This issue is stable and appropriate refills, lab, and f/u have been discussed. Lab pending. Ordered: Hemoglobin A1c Guillain-Compton The patient's issue is nearly or completely resolved. There is no further issues or testing desired by them at this time. Resolved but needing monitoring. High cholesterol This issue is stable and appropriate refills, lab, and f/u have been discussed. Low back pain (finding) This issue is stable and appropriate refills, lab, and f/u have been discussed. Mild HTN Add labetalol 50mg po bid and monitor closely. Recheck appt in 30 days or sooner prn.Lab pending. Ordered: CBC w/ Differential Comprehensive Metabolic Panel Lipid Panel TSH with Reflex Free T4 Urinalysis with Culture if Indicated Obesity Trial of victoza .6mg sq daily. Samples and nursing education/demo given. Recheck in 30 days or sooner prn. Side effects discussed. Orders: liraglutide, 0.6 mg, SubCutaneous, Daily, # 3 mL, 0 Refill(s), samples given to patient (Rx) Misc Medication, labetalol, See Instructions, 1 po bid, # 60 Each, 0 Refill(s) , Pharmacy: [facility] #[id number], 1 po bid
--- OUTSIDE RECORDS SUMMARY | 2017-03-03 09:44 | XMS REPORT | Referral Summary ---
Author Organization Unknown Address Unknown Phone Unavailable Care Team Providers Care Field Crop Technical Officer Name Role Phone Chito Bobby Primary Care Physician [phone] Encounter VC Date(s): 01/08/15 - 01/08/15 [facility] Nelson, Demetris, Family Medicine [address] [place] [address] Dr Willson [place] [id number] Discharge Disposition: Home or Self Care Attending Physician: Aure Atwood APRN Admitting Physician: Aure Atwood APRN Vital Signs Most recent to 1 oldest [Reference Range]: Peripheral Pulse 96 bpm Rate [60-100 bpm] (01/08/15 3:44 PM) Blood Pressure 170/88 mmHg [90-140/60-90 mmHg] *HI* (01/08/15 3:44 PM) Problem List Condition Effective Dates Status Health Status Informant Benign essential Active hypertension(Confirm ed) Degeneration of Active lumbar or lumbosacral intervertebral disc(Confirmed) Displacement of Active lumbar intervertebral disc without myelopathy (disorder)(Confirmed ) 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) Hyperlipidemia(Confi Active rmed) Elevated blood Active sugar(Confirmed) Low back pain Active (finding)(Confirmed) Lumbosacral Active spondylosis(Confirme d) Obesity(Confirmed) Active patient Lumbar disc Active herniation(Confirmed ) Spinal stenosis of Active lumbar region without neurogenic claudication(Confirm ed) Thoracic or Active lumbosacral neuritis or radiculitis, unspecified(Confirme d) Allergies, Adverse Reactions, Alerts Substance Reaction Severity Status penicillin Hives/Skin Rash Active Medications Fish Oil 1000 mg oral capsule 1 caps, Oral, Daily, 0 Refill(s) Start Date: 04/15/14 Status: Ordered hydrochlorothiazide 25 mg oral tablet 1 tabs, Oral, Daily, # 90 tabs, 1 Refill(s), Pharmacy: [facility] #[id number] , 1 tabs Oral Daily Start Date: 04/16/14 Status: Ordered labetalol 100 mg oral tablet 1 tabs, Oral, BID, # 60 tabs, 0 Refill(s), Pharmacy: [facility] #[id number], 1 tabs Oral BID Start Date: 12/09/14 Status: Ordered Mevacor 20 mg oral tablet 1 tabs, Oral, Daily, # 90 tabs, 1 Refill(s), Pharmacy: [facility] #[id number] , 1 tabs Oral Daily Start Date: 10/30/14 Status: Ordered omeprazole 20 mg oral delayed release capsule 1 caps, Oral, Daily, 0 Refill(s) Start Date: 04/15/14 Status: Ordered traMADol 50 mg oral tablet 1 tabs, Oral, q4hr, sAng medina, # 100 tabs, 0 Refill(s) Special Instructions: [email or web address] Start Date: 10/26/14 Status: Ordered Victoza [...]
--- OUTSIDE RECORDS SUMMARY | 2017-03-03 09:44 | XMS REPORT | Referral Summary ---
Author Author [facility], Family Medicine Organization [facility] Address Unknown Phone Unavailable Care Team Providers Care Electric Meter Reader Name Role Phone Chito Bobby Primary Care Physician [phone] Encounter VC Date(s): 09/27/15 - 09/27/15 Via [facility] Nelson [place], Family [address] [place] [id number] Discharge Disposition: 01-Home or Self Care Attending Physician: Rafael Bobby MD Admitting Physician: Rafael Bobby MD Vital Signs Most recent to 1 oldest [Reference Range]: Blood Pressure 120/70 mmHg [90-140/60-90 mmHg] (09/27/15 2:08 PM) Problem List Condition Effective Dates Status Health Status Informant Benign essential Active hypertension(Confirm ed) Degeneration of Active lumbar or lumbosacral intervertebral disc(Confirmed) Depression(Confirmed Active ) Displacement of Active lumbar intervertebral disc without myelopathy (disorder)(Confirmed ) Shortness of Active breath(Confirmed) GERD without Active esophagitis(Confirme d) Glossitis(Confirmed) Active 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) Hyperlipidemia(Confi Active rmed) Elevated blood [...] DAY, # 90 tabs, 1 Refill(s), eRx: [facility] #[id number], TAKE ONE TABLET BY MOUTH ONCE A DAY Start Date: 05/24/15 Status: Ordered labetalol 100 mg oral tablet See Instructions, TAKE ONE TABLET BY MOUTH TWICE A DAY, # 180 tabs, 1 Refill(s) , eRx: [facility] #[id number], TAKE ONE TABLET BY MOUTH TWICE A DAY Start Date: 05/13/15 Status: Ordered Mevacor 20 mg oral tablet See Instructions, TAKE ONE TABLET BY MOUTH DAILY, # 90 tabs, 1 Refill(s), eRx: [facility] #[id number], TAKE ONE TABLET BY MOUTH DAILY Start Date: 05/17/15 Status: Ordered NexIUM 20 mg oral delayed release capsule 20 mg 1 caps, Oral, Daily, # 30 caps, 0 Refill(s) Start Date: 03/24/15 Status: Ordered traZODone 150 mg oral tablet [...] applications, or slings as instructed. Only take suoz-tnj-pfiinnv or prescription medicines for pain, discomfort, or [...] 01/06/2013 Document Reviewed: ExitCare Patient Information 2015 [employer]. This information is not intended to replace advice given to you by your health care provider. Make sure you discuss any questions you have with your health care provider. No follow up information was provided. Extracted from: Title: Office Visit Note Author: Rafael Bobby MD Date: 09/27/15 Assessment/Plan Benign essential hypertension This issue was reviewed, appears stable, and current therapy continued except as mentioned. Appropriate lab was reviewed from the most recent appropriate entry and lab was ordered if needed in the cpoe /nursing orders, and follow up recommended generally in 90 days and no later then six months. The patient reports their blood pressure has been stable at home and is not having any significant or related problems. There has been no chest pain, chest pressure, soa/ruiz. Bilateral shoulder pain Xray pending. To [facility] Ortho for evaluation. A work /school note was offered and deferred by the patient. Depression This issue was reviewed, appears stable, and current therapy continued except as mentioned. Appropriate lab was reviewed from the most recent appropriate entry and lab was ordered if needed in the cpoe/nursing orders, and follow up recommended generally in 90 days and no later then six months. Seeing PV. Elevated blood sugar This issue was reviewed, appears stable, and current therapy continued except as mentioned. Appropriate lab was reviewed from the most recent appropriate entry and lab was ordered if needed in the cpoe/nursing orders, and follow up recommended generally in 90 days and no later then six months. See lab. Medial epicondylitis of right elbow To Ortho. Rest/ice/nsaids. A work/ school note was offered and deferred by the patient. Obesity Diet and exercise as tolerated and feasible. Consider medication when interested. Consider victoza when willing. Shoulder pain To Ortho. Ordered: XR Shoulder Complete Left Spinal stenosis of lumbar region without neurogenic claudication This issue was reviewed, appears stable, and current therapy continued except as mentioned. Appropriate lab was reviewed from the most recent appropriate entry and lab was ordered if needed in the cpoe/nursing orders, and follow up recommended generally in 90 days and no later then six months. Back is stable at this time.
--- OUTSIDE RECORDS SUMMARY | 2017-03-03 09:45 | XMS REPORT | Referral Summary ---
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[place] Discharge Diagnosis: Obesity Discharge Diagnosis: Low back pain (finding) Discharge Diagnosis: Benign essential hypertension Discharge Disposition: Home or Self Care Attending Physician: Rafael Bobby MD Admitting Physician: Rafael Bobby MD Vital Signs Most recent to 1 oldest [Reference Range]: Blood Pressure 160/100 mmHg [90-140/60-90 mmHg] *HI* (12/28/14 3:02 PM) Problem List Condition Effective Dates Status Health Status Informant Benign essential Active hypertension(Confirm ed) Degeneration of Active lumbar or lumbosacral intervertebral disc(Confirmed) Displacement of Active lumbar intervertebral disc without myelopathy (disorder)(Confirmed ) 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) Hyperlipidemia(Confi Active rmed) Elevated blood [...] TID, # 90 caps, 0 Refill(s), Pharmacy: [facility] #[id number], 1 caps Oral TID Start Date: 09/14/14 Status: Ordered hydrochlorothiazide 25 mg oral tablet 1 tabs, Oral, Daily, # 90 tabs, 1 Refill(s), Pharmacy: [facility] #[id number] , 1 tabs Oral Daily Start Date: 04/16/14 Status: Ordered labetalol 100 mg oral tablet 1 tabs, Oral, BID, # 60 tabs, 0 Refill(s), Pharmacy: [facility] #[id number], 1 tabs Oral BID Start Date: 12/09/14 Status: Ordered Mevacor 20 mg oral tablet 1 tabs, Oral, Daily, # 90 tabs, 1 Refill(s), Pharmacy: [facility] #[id number] , 1 tabs Oral Daily Start Date: 10/30/14 Status: Ordered [place] 10 mg-325 mg oral tablet 1 tabs, [...] Patient Education Author: Rafael Bobby MD Date: 12/28/14 Family Medicine Back Pain, Adult Low back [...] stressful on the back to sit or supervisor machine workers one place. Do not sit, drive, or supervisor machine workers one place for more than 30 minutes [...] a pillow under your knees. Only take cnoa-zmj-ymgjxpc or prescription medicines as directed by your caregiver. Uasi-mzz-zgstreq medicines to reduce pain and inflammation are [...] Released: 10/15/2006 Document Revised: 04/15/2013 Document Reviewed: [facility] Patient Information 2014 [employer]. No follow up information was provided. Extracted from: Title: Office Visit Note Author: Rafael Bobby MD Date: 12/28/14 Assessment/Plan Benign essential hypertension This issue is stable and appropriate refills, lab, and f/u have been discussed. Journal at home is totally normal. No med changes appear necessary based on current results. Guillain-[place] The patient's issue is nearly or completely resolved. There is no further issues or testing desired by them at this time. Low back pain (finding) This issue is stable and appropriate refills, lab, and f/u have been discussed. A work/school note was offered and deferred by the patient. Obesity Samples of victoza given as a courtesy. May titrate to 1.8 mg daily. Use one hour before meal if possible.
--- OUTSIDE RECORDS SUMMARY | 2017-03-03 09:45 | XMS REPORT | Referral Summary ---
Author Author [facility] Organization [facility] Address Unknown Phone Unavailable Care Team Providers Care Portrait Photographer Name Role Phone Chito Bobby Primary Care Physician [phone] Encounter VC Date(s): 03/24/15 - 03/24/15 [facility], Family [address] [place] [id number] Discharge Disposition: 01-Home or Self Care Attending Physician: Rafael Bobby MD Admitting Physician: Rafael Bobby MD Vital Signs Most recent to 1 oldest [Reference Range]: Blood Pressure 120/90 mmHg [90-140/60-90 mmHg] (03/24/15 4:27 PM) Problem List Condition Effective Dates Status Health Status Informant Benign essential Active hypertension(Confirm ed) Degeneration of Active lumbar or lumbosacral intervertebral disc(Confirmed) Depression(Confirmed Active ) Displacement of Active lumbar intervertebral disc without myelopathy (disorder)(Confirmed ) Shortness of Active breath(Confirmed) GERD without Active esophagitis(Confirme d) Glossitis(Confirmed) Active 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) Hyperlipidemia(Confi Active rmed) Elevated blood [...] DAY, # 90 tabs, 1 Refill(s), eRx: [facility] #[id number], TAKE ONE TABLET BY MOUTH ONCE A DAY Start Date: 05/24/15 Status: Ordered labetalol 100 mg oral tablet See Instructions, TAKE ONE TABLET BY MOUTH TWICE A DAY, # 180 tabs, 1 Refill(s) , eRx: [facility] #[id number], TAKE ONE TABLET BY MOUTH TWICE A DAY Start Date: 05/13/15 Status: Ordered Mevacor 20 mg oral tablet See Instructions, TAKE ONE TABLET BY MOUTH DAILY, # 90 tabs, 1 Refill(s), eRx: [facility] #[id number], TAKE ONE TABLET BY MOUTH DAILY Start [...] failure. Hyperparathyroidism. Medications. Renal artery stenosis. Pheochromocytoma. [place]'s disease. Coarctation of the aorta. Scleroderma renal [...] 01/06/2013 Document Reviewed: ExitCare Patient Information 2014 [address]. No follow up information was provided. Extracted from: Title: Office Visit Note Author: Rafael Bobby MD Date: 03/24/15 Assessment/Plan Benign essential hypertension This issue is stable and appropriate refills, lab, and f/u have been discussed. Please make the medication adjustments we discussed. Please notify the office for any difficulties or concerns. Stop hctz. Trial of clonidine .1mg 1/2-1 po qhs prn. Number 14 given at his request of something to help with agitation and priapism. Depression This issue is stable and appropriate refills, lab, and f/u have been discussed. Continue working with PV. Obsession See above. Exercise and counseling discussed. He is starting with an additional PTSD therapist in the morning tomorrow. Priapism See above. We discussed many options to diminish his sex drive and he agrees to try exercise first, cold showers, clonidine if needed for the desire and anger. Hormones were not felt to be a safe option at this time. Orders: cloNIDine, 0.1 mg 1 tabs, Oral, Bedtime (once a day), # 14 tabs, 0 Refill(s), Pharmacy: [facility] #[id number], 1 tabs Oral Bedtime (once a day), x14 days Addendum Side effects of clonidine and the effect on his bp were discussed. He is very angry but by reasonable and desiring something additional to help with the sexual desire and has NOT Evelyntra, been helped by PV so far. Rafael Dale MD on March 24, 2015 17:07:31 CDT
--- OUTSIDE RECORDS SUMMARY | 2017-03-03 09:46 | XMS REPORT | Continuity of Care Document ---
Author Author [facility] Organization [facility] Address Unknown Phone Unavailable Allergies Active Description Code Type Severity Reaction Onset Reported/Identified Relationship to Patient Clinical Status Yes penicillin NKMA N/A Hives/Skin Rash 02/27/2014 Medications Problems Procedures Results Test Result Range CBC With Platelet and Differential - 04/07/16 13:58 Absolute Basophils 0.07 10*3 0.00-0.20 Absolute Eosinophils 0.40 10*3 0.00-0.50 Absolute Lymphocytes 2.67 10*3 0.80-3.30 Absolute Monocytes 0.47 10*3 0.30-1.00 Absolute Neutrophils 3.23 10*3 1.90-7.00 Basophils 1 % 0-2 Eosinophils 6 % 0-4 HCT 43.5 % 42.0-52.0 HGB 15.7 g/dL 14.0-18.0 Immature Granulocytes 0.1 % 0.0-1.0 Lymphocytes 39 % 20-46 MCH 30.8 pg 27.0-32.0 MCHC 36.1 g/dL 32.0-36.0 MCV 85.3 fL 82.0-99.0 Monocytes 7 % 4-11 MPV 11.8 fL 8.8-14.8 Neutrophils 47 % 51-75 Platelet Count 216 K/uL 150-400 RBC 5.10 10*6/uL 4.60-6.20 RDW 12.9 % 11.5-14.5 WBC 6.8 K/uL 4.8-10.8 Comprehensive Metabolic Panel (CMP) - 04/07/16 13:58 Albumin 4.6 g/dL 3.5-5.0 Alkaline Phosphatase 80 U/L 40-150 ALT (SGPT) 25 U/L 0-55 Anion Gap 10 NA 3-20 AST (SGOT) 17 U/L 5-34 Bilirubin Total 0.6 mg/dL 0.2-1.2 BUN 23 mg/dL 8-26 Calcium 9.6 mg/dL 8.9-10.5 Chloride 101 mEq/L 99-111 CO2 30 mEq/L 23-31 Creatinine 1.31 mg/dL 0.72-1.25 Globulin 2.9 g/dL 1.8-4.0 Glucose 104 mg/dL 70-99 Potassium 3.8 mEq/L 3.5-5.2 Protein 7.5 g/dL 6.4-8.3 Sodium 141 mEq/L 135-144 eGFR - 04/07/16 13:58 eGFR 56 mL/min >60 PSA - 04/07/16 13:58 PSA 1.1 ng/mL 0.0-3.5 Hemoglobin A1C - 04/07/16 13:58 Hemoglobin A1C 5.3 % 4.1-5.6 Estimated Average Glucose - 04/07/16 13:58 Estimated Average Glucose 105.4 mg/dL Urinalysis with reflex microscopic - 04/07/16 14:05 Appearance Clear NA Bilirubin Negative NA Negative Blood Negative NA Negative Color DkYellow NA Glucose, Urine Negative Negative Ketones Negative Negative Leukocyte Esterase Negative NA Negative Nitrites Negative NA Negative pH 6.5 NA 5.0-8.0 Protein Negative Negative Specific [place] 1.030 NA 1.003-1.030 UA Collection type Voided NA Urobilinogen 1.0 mg/dL <1.0 Encounters ACCT No. Visit Date/Time Discharge Status Pt. Type Provider Facility Loc./Unit Complaint [id number] 08/16/2016 07:34:00 2015 23:59:00 DIS Outpatient Aubrey Butts [facility] Ortho tcpa RCK R ELBOW AND NPC L ELBOW REQ INJ [id number] 04/07/2016 13:20:00 2015 23:59:00 DIS Outpatient Rafael Bobby [facility] med check [id number] 01/20/2016 08:35:00 2015 23:59:00 DIS Outpatient Jenaine Cain [facility] Left knee pain [id number] 12/27/2015 07:20:00 2015 23:59:00 DIS Outpatient Aubrey Butts [facility] FC Ortho cDISCUSS RT ELBOW PAIN [id number] 11/19/2015 11:12:00 2015 23:59:00 DIS Outpatient Jeanine Cain [facility] SORE INSIDE MOUTH [id number] 11/01/2015 15:11:00 2015 23:59:00 DIS Outpatient Rafael Bobby [facility] Weight loss [id number] 09/27/2015 13:53:00 2014 23:59:00 DIS Outpatient Rafael Bobby [facility] fu lab and Xray [id number] 08/19/2015 11:05:00 2014 23:59:00 DIS Outpatient Rafale Bobby [facility] tounge is split open wont heal [id number] 05/10/2015 10:54:00 2014 23:59:00 DIS Outpatient Rafael Bobby [facility] bp check [id number] 12/08/2014 15:33:00 2014 23:59:00 DIS Outpatient Rafael Bobby [facility] discuss appetite [id number] 10/30/2014 12:53:00 2014 23:59:00 DIS Outpatient Rafael Bobby [facility] flu like symptoms [id number] 10/26/2014 14:10:00 2013 23:59:00 DIS Outpatient Rafael Bobby [facility] med check [id number] 09/30/2014 12:33:00 2013 23:59:00 DIS Outpatient Nick Galindo [facility] FC April LT L2-3 TRANF, L/BPM/NRN/NPN [id number] 09/29/2014 08:01:00 2013 23:59:00 DIS Outpatient Greg Limon S [facility] FC April RCK MRI RESULTS BACK/NRN [id number] 11/03/2015 14:24:00 ACT Outpatient Aubrey Butts [facility] W21 Ortho Rt elbow pain req injection [id number] 03/24/2015 16:20:00 Document Registration [id number] 01/28/2015 15:22:00 Document Registration [id number] 01/21/2015 23:59:00 Document Registration
--- OUTSIDE RECORDS SUMMARY | 2017-03-03 09:46 | XMS REPORT | Referral Summary ---
Author Author [facility] Organization [facility] Address Unknown Phone Unavailable Care Team Providers Care Passenger Tire Builder Name Role Phone Chito Bobby Primary Care Physician [phone] Encounter VC Date(s): 04/07/16 - 04/07/16 [facility] [address] [place] [address]- Discharge Disposition: 01-Home or Self Care Attending Physician: Rafael Bobby MD Admitting Physician: Rafael Bobby MD Vital Signs Most recent to 1 oldest [Reference Range]: Blood Pressure 130/80 mmHg [90-140/60-90 mmHg] (04/07/16 1:28 PM) Problem List Condition Effective Dates Status Health Status Informant Benign essential Active hypertension(Confirm ed) Degeneration of Active lumbar or lumbosacral intervertebral disc(Confirmed) Depression(Confirmed Active ) Displacement of Active lumbar intervertebral disc without myelopathy (disorder)(Confirmed ) Shortness of Active breath(Confirmed) GERD without Active esophagitis(Confirme d) 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 # [id number], 1 tabs Oral Daily Start Date: 04/07/16 Status: Ordered labetalol 100 mg oral tablet 100 mg 1 tabs, Oral, BID, # 180 tabs, 1 Refill(s), Pharmacy: [facility] # [id number], 1 tabs Oral BID Start Date: 04/07/16 Status: Ordered meloxicam 15 mg oral tablet 15 mg 1 tabs, Oral, Daily, # 30 tabs, 0 Refill(s), Pharmacy: [facility] # [id number], 1 tabs Oral Daily Start Date: 12/27/15 Status: Ordered Mevacor 20 mg oral tablet See Instructions, TAKE ONE TABLET BY MOUTH DAILY, # 90 tabs, 1 Refill(s), eRx: [facility] #[id number], TAKE ONE TABLET BY MOUTH DAILY Start Date: 11/16/15 Status: Ordered [place] 5 mg-325 mg oral tablet 1 tabs, Oral, Bedtime (once a day), as needed for pain, One time script. Not refillable., # 10 tabs, 0 Refill(s) Start Date: 01/20/16 Status: Ordered predniSONE 10 mg oral tablet 10 mg 1 tabs, Oral, Daily, X 10 days, # 10 tabs, 0 Refill(s), Pharmacy: [facility] #[id number], 1 tabs Oral Daily,x10 days Start Date: 04/07/16 Stop Date: 04/17/16 Status: Ordered PriLOSEC 40 mg oral delayed release capsule 40 mg 1 caps, Oral, Daily, # 90 caps, 0 Refill(s), Pharmacy: [facility] # [id number], 1 caps Oral Daily Start Date: 11/01/15 Status: Ordered traMADol 50 mg oral tablet 50 mg 1 tabs, Oral, q12hr, as needed for pain, s. carol, # 60 tabs, 0 Refill(s ) Start Date: 04/07/16 Status: Ordered traZODone 150 mg oral tablet 75 mg 0.5 tabs, Oral, Bedtime (once a day), from pv, 0 Refill(s) Start Date: 05/10/15 Status: Ordered Results Hematology Most recent to 1 oldest [Reference Range]: WBC [4.8-10.8 6.8 10*3/uL 10*3/uL] (04/07/16 1:58 PM) RBC [4.60-6.20] 5.10 (04/07/16 1:58 PM) Hgb [14.0-18.0 15.7 gm/dL gm/dL] (04/07/16 1:58 PM) Hct [42.0-52.0 %] 43.5 % (04/07/16 1:58 PM) MCV [82.0-99.0 fL] 85.3 fL (04/07/16 1:58 PM) MCH [27.0-32.0 pg] 30.8 pg (04/07/16 1:58 PM) MCHC [32.0-36.0 36.1 gm/dL gm/dL] *HI* (04/07/16 1:58 PM) RDW [11.5-14.5 %] 12.9 % (04/07/16 1:58 PM) Platelet [150-400 216 10*3/uL 10*3/uL] (04/07/16 1:58 PM) MPV [8.8-14.8 fL] 11.8 fL (04/07/16 1:58 PM) Immature 0.1 % Granulocytes (04/07/16 1:58 PM) [0.0-1.0 %] Neutrophils [51-75 47 % %] *LOW* (04/07/16 1:58 PM) Lymphocytes [20-46 39 % %] (04/07/16 1:58 PM) Monocytes [4-11 %] 7 % (04/07/16 1:58 PM) Eosinophils [0-4 %] 6 % *HI* (04/07/16 1:58 PM) Basophils [0-2 %] 1 % (04/07/16 1:58 PM) Neutro Absolute 3.23 10*3 [1.90-7.00 10*3] (04/07/16 1:58 PM) Lymph Absolute 2.67 10*3 [0.80-3.30 10*3] (04/07/16 1:58 PM) [place] Absolute 0.47 10*3 [0.30-1.00 10*3] (04/07/16 1:58 PM) Eos Absolute 0.40 10*3 [0.00-0.50 10*3] (04/07/16 1:58 PM) Baso Absolute 0.07 10*3 [0.00-0.20 10*3] (04/07/16 1:58 PM) Chemistry Most recent to 1 oldest [Reference Range]: Sodium Lvl [135-144 141 mEq/L mEq/L] (04/07/16 1:58 PM) Potassium Lvl 3.8 mEq/L [3.5-5.2 mEq/L] (04/07/16 1:58 PM) Chloride [99-111 101 mEq/L mEq/L] (04/07/16 1:58 PM) CO2 [23-31 mEq/L] 30 mEq/L (04/07/16 1:58 PM) AGAP [3-20] 10 (04/07/16 1:58 PM) BUN [8-26 mg/dL] 23 mg/dL (04/07/16 1:58 PM) Glucose Lvl [70-99 104 mg/dL mg/dL] *HI* (04/07/16 1:58 PM) Creatinine Lvl 1.31 mg/dL [0.72-1.25 mg/dL] *HI* (04/07/16 1:58 PM) eGFR [>60 mL/min] 56 mL/min 1 *ABN* (04/07/16 1:58 PM) Calcium Lvl 9.6 mg/dL [8.9-10.5 mg/dL] (04/07/16 1:58 PM) Albumin Lvl [3.5-5.0 4.6 gm/dL gm/dL] (04/07/16 1:58 PM) Total Protein 7.5 gm/dL [6.4-8.3 gm/dL] (04/07/16 1:58 PM) Globulin [1.8-4.0 2.9 gm/dL gm/dL] (04/07/16 1:58 PM) ALT [0-55 U/L] 25 U/L (04/07/16 1:58 PM) AST [5-34 U/L] 17 U/L (04/07/16 1:58 PM) Alk Phos [40-150 80 U/L U/L] (04/07/16 1:58 PM) Bili Total [0.2-1.2 0.6 mg/dL mg/dL] (04/07/16 1:58 PM) PSA (wihout Reflex 1.1 ng/mL 2 Free) [0.0-3.5 (04/07/16 1:58 PM) ng/mL] 1Result Comment: Multiply eGFR results by 1.21 for race. 2Result Comment: AUA PSA Best Practice Guidelines: Age-Adjusted PSA Values by Ethnic Group Age Range Asians - Caucasians Americans 40-49 0-2.0 0-2.0 0-2.5 50-59 0-3.0 0-4.0 0-3.5 60-69 0-4.0 0-4.5 0-4.5 70-79 0-5.0 0-5.5 0-6.5 Urinalysis Most recent to 1 oldest [Reference Range]: UA Color DkYellow (04/07/16 2:05 PM) UA Appear Clear (04/07/16 2:05 PM) UA pH [5.0-8.0] 6.5 (04/07/16 2:05 PM) UA Leuk Est Negative [Negative] (04/07/16 2:05 PM) UA Nitrite Negative [Negative] (04/07/16 2:05 PM) UA Protein Negative [Negative] (04/07/16 2:05 PM) UA Glucose Negative [Negative] (04/07/16 2:05 PM) UA Ketones Negative [Negative] (04/07/16 2:05 PM) UA Urobilinogen 1.0 mg/dL [<1.0 mg/dL] (04/07/16 2:05 PM) UA Bili [Negative] Negative (04/07/16 2:05 PM) UA Blood [Negative] Negative (04/07/16 2:05 PM) UA Spec Grav 1.030 [1.003-1.030] (04/07/16 2:05 PM) Type Voided (04/07/16 2:05 PM) Immunizations No data available for this [...] Patient Education Author: Rafael Bobby MD Date: 08/13 Family Medicine Arthritis, Nonspecific Arthritis is inflammation of a joint. This usually means pain, redness, warmth or swelling are present. One or more joints may be involved. There are a number of types of arthritis. Your caregiver may not be able to tell what type of arthritis you have right away. CAUSES The most common cause of arthritis is the wear and tear on the joint ( osteoarthritis). This causes damage to the cartilage, which can break down over time. The knees, hips, back and neck are most often affected by this type of arthritis. Other types of arthritis and common causes of joint pain include: Sprains and other injuries near the joint. Sometimes minor sprains and injuries cause pain and swelling that develop hours later. Rheumatoid arthritis. This affects hands, feet and knees. It usually affects both sides of your body at the same time. It is often associated with chronic ailments, fever, weight loss and general weakness. Crystal arthritis. Gout and pseudo gout can cause occasional acute severe pain, redness and swelling in the foot, ankle, or knee. Infectious arthritis. Bacteria can get into a joint through a break in overlying skin. This can cause infection of the joint. Bacteria and viruses can also spread through the blood and affect your joints. Drug, infectious and allergy reactions. Sometimes joints can become mildly painful and slightly swollen with these types of illnesses. SYMPTOMS Pain is the main symptom. Your joint or joints can also be red, swollen and warm or hot to the touch. You may have a fever with certain types of arthritis, or even feel overall ill. The joint with arthritis will hurt with movement. Stiffness is present with some types of arthritis. DIAGNOSIS Your caregiver will suspect arthritis based on your description of your symptoms and on your exam. Testing may be needed to find the type of arthritis: Blood and sometimes urine tests. X-ray tests and sometimes CT or MRI scans. Removal of fluid from the joint (arthrocentesis) is done to check for bacteria, crystals or other causes. Your caregiver (or a specialist) will numb the area over the joint with a local anesthetic, and use a needle to remove joint fluid for examination. This procedure is only minimally uncomfortable. Even with these tests, your caregiver may not be able to tell what kind of arthritis you have. Consultation with a specialist (sheet rock taper) may be helpful. TREATMENT Your caregiver will discuss with you treatment specific to your type of arthritis. If the specific type cannot be determined, then the following general recommendations may apply. Treatment of severe joint pain includes: Rest. Elevation. Anti-inflammatory medication (for example, ibuprofen) may be prescribed. Avoiding activities that cause increased pain. Only take fjhd-hwf-rzdlysw or prescription medicines for pain and discomfort as recommended by your caregiver. Cold packs over an inflamed joint may be used for 10 to 15 minutes every hour. Hot packs sometimes feel better, but do not use overnight. Do not use hot packs if you are diabetic without your caregiver's permission. A cortisone shot into arthritic joints may help reduce pain and swelling. Any acute arthritis that gets worse over the next 1 to 2 days needs to be looked at to be sure there is no joint infection. Long-term arthritis treatment involves modifying activities and lifestyle to reduce joint stress jarring. This can include weight loss. Also, exercise is needed to nourish the joint cartilage and remove waste. This helps keep the muscles around the joint strong. HOME CARE INSTRUCTIONS Do not take aspirin to relieve pain if gout is suspected. This elevates uric acid levels. Only take mufu-dkg-jkbwuqm or prescription medicines for pain, discomfort or fever as directed by your caregiver. Rest the joint as much as possible. If your joint is swollen, keep it elevated. Use crutches if the painful joint is in your leg. Drinking plenty of fluids may help for certain types of arthritis. Follow your caregiver's dietary instructions. Try low-impact exercise such as: Swimming. Water aerobics. Biking. Walking. Morning stiffness is often relieved by a warm shower. Put your joints through regular nifhr-gt-naczew. SEEK MEDICAL CARE IF: You do not feel better in 24 hours or are getting worse. You have side effects to medications, or are not getting better with treatment. SEEK IMMEDIATE MEDICAL CARE IF: You have a fever. You develop severe joint pain, swelling or redness. Many joints are involved and become painful and swollen. There is severe back pain and/or leg weakness. You have loss of bowel or bladder control. This information is not intended to replace advice given to you by your health care provider. Make sure you discuss any questions you have with your health care provider. Document Released: 11/22/2005 Document Revised: 11/05/2015 Document Reviewed: [facility] Patient Information 2016 [employer]. No follow up information was provided. Extracted from: Title: Office Visit Note Author: Rafael Bobby MD Date: 04/07/16 Assessment/Plan Benign essential HTN This issue was reviewed, appears stable, and [...] been no chest pain, chest pressure, soa/ruiz. Refill meds. Ordered: CBC w/ Differential Comprehensive Metabolic Panel Urinalysis with Culture if Indicated Change in mole Needs to schedule excision in the next 90 days. Depression This issue was reviewed, appears stable, and current therapy continued except as mentioned. Appropriate lab was reviewed from the most recent appropriate entry and lab was ordered if needed in the cpoe/nursing orders, and follow up recommended generally in 90 days and no later then six months. Doing well with counseling. GERD without esophagitis This issue was reviewed, appears stable, and current therapy continued except as mentioned. Appropriate lab was reviewed from the most recent appropriate entry and lab was ordered if needed in the cpoe/nursing orders, and follow up recommended generally in 90 days and no later then six months. Doing well on meds. 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 There is no further issues or testing desired by them at this time. High blood sugar This issue was reviewed, appears stable, and current therapy continued except as mentioned. Appropriate lab was reviewed from the most recent appropriate entry and lab was ordered if needed in the cpoe/nursing orders, and follow up recommended generally in 90 days and no later then six months. Lab pending. Ordered: Hemoglobin A1c Hyperlipidemia This issue was reviewed, appears stable, and current therapy continued except as mentioned. Appropriate lab was reviewed from the most recent appropriate entry and lab was ordered if needed in the cpoe/nursing orders, and follow up recommended generally in 90 days and no later then six months. Lab pending. A work/school note was offered and deferred by the patient. Knee pain, left MRI of left knee for past trauma, continued pain, negative xray. Ultram 50mg po bid prn. May cause sedation. IMPRESSION: No acute osseous abnormality with mild degenerative changes. [1] Screening PSA (prostate specific antigen) Lab pending. Ordered: Prostate Specific Antigen Orders: hydrochlorothiazide, 25 mg 1 tabs, Oral, Daily, # 90 tabs, 1 Refill(s) , Pharmacy: [email or web address] #[id number], 1 tabs Oral Daily labetalol, 100 mg 1 tabs, Oral, BID, # 180 tabs, 1 Refill(s), Pharmacy: [email or web address] #[id number], 1 tabs Oral BID predniSONE, 10 mg 1 tabs, Oral, Daily, X 10 days, # 10 tabs, 0 Refill(s), Pharmacy: [email or web address] #[id number], 1 tabs Oral Daily,x10 days traMADol, 50 mg 1 tabs, Oral, q12hr, as needed for pain, s. dillons, # 60 tabs , 0 Refill(s) MRI LE Joint w/o Contrast Left Addendum Rhinitis will be given prednisone 10mg po daily for ten days. Stop afrin. Call by report. Mood has been stable on the prednisone in the past. Rafael Bobby MD on April 07, 2016 14:14:24 CDT
--- OUTSIDE RECORDS SUMMARY | 2017-03-03 09:46 | XMS REPORT | Referral Summary ---
Author Author [facility] Organization [facility] Address Unknown Phone Unavailable Care Team Providers Care Construction Stonemason Name Role Phone Chito Bobby Primary Care Physician [phone] Encounter VC Date(s): 08/19/15 - 08/19/15 [facility] [address] [place] [id number] Discharge Disposition: 01-Home or Self Care [...] GERD without Active esophagitis(Confirme d) Glossitis(Confirmed) Active Guillain-Welch(Confi Active rmed) Hyperlipidemia(Confi Active rmed) Elevated blood [...] DAY, # 90 tabs, 1 Refill(s), eRx: [facility] #[id number], TAKE ONE TABLET BY MOUTH ONCE A DAY Start Date: 05/24/15 Status: Ordered labetalol 100 mg oral tablet See Instructions, TAKE ONE TABLET BY MOUTH TWICE A DAY, # 180 tabs, eRx: [facility] #[id number], TAKE ONE TABLET BY MOUTH TWICE A DAY Start Date: 12/29/15 Status: Ordered meloxicam 15 mg oral tablet 15 mg 1 tabs, Oral, Daily, # 30 tabs, 0 Refill(s), Pharmacy: [facility] # [id number], 1 tabs Oral Daily Start Date: 12/27/15 Status: Ordered Mevacor 20 mg oral tablet See Instructions, TAKE ONE TABLET BY MOUTH DAILY, # 90 tabs, 1 Refill(s), eRx: [facility] #[id number], TAKE ONE TABLET BY MOUTH DAILY Start Date: 11/16/15 Status: Ordered [place] 5 mg-325 mg oral tablet 1 tabs, Oral, Bedtime (once a day), as needed for pain, One time script. Not refillable., # 10 tabs, 0 Refill(s) Start Date: 01/20/16 Status: Ordered PriLOSEC 40 mg oral delayed release capsule 40 mg 1 caps, Oral, Daily, # 90 caps, 0 Refill(s), Pharmacy: [facility] # [id number], 1 caps Oral Daily Start Date: 11/01/15 Status: Ordered traZODone 150 mg oral tablet 75 mg 0.5 tabs, Oral, Bedtime (once a day), from pv, 0 Refill(s) Start Date: 05/10/15 Status: Ordered Results Hematology Most recent to 1 oldest [Reference Range]: WBC [4.8-10.8 6.5 10*3/uL 10*3/uL] (08/19/15 11:40 AM) RBC [4.60-6.20] 5.09 (08/19/1540 AM) Hgb [14.0-18.0 15.6 gm/dL gm/dL] (08/19/1540 AM) Hct [42.0-52.0 %] 43.2 % (08/19/1540 AM) MCV [82.0-99.0 fL] 84.9 fL (08/19/1540 AM) MCH [27.0-32.0 pg] 30.6 pg (08/19/1540 AM) MCHC [32.0-36.0 36.1 gm/dL gm/dL] *HI* (08/19/1540 AM) RDW [11.5-14.5 %] 12.8 % (08/19/1540 AM) Platelet [150-400 168 10*3/uL 10*3/uL] (08/19/15:40 AM) MPV [8.8-14.8 fL] 11.5 fL (08/19/15:40 AM) Immature 0.0 % Granulocytes (08/19/1540 AM) [0.0-1.0 %] Neutrophils [51-75 59 % %] (08/19/1540 AM) Lymphocytes [20-46 33 % %] (08/19/1540 AM) Monocytes [4-11 %] 6 % (08/19/15 11:40 AM) Eosinophils [0-4 %] 1 % (08/19/1540 AM) Basophils [0-2 %] 1 % (08/19/15 11:40 AM) Neutro Absolute 3.82 10*3 [1.90-7.00 10*3] (08/19/15 11:40 AM) Lymph Absolute 2.15 10*3 [0.80-3.30 10*3] (08/19/15 11:40 AM) Person Absolute 0.41 10*3 [0.30-1.00 10*3] (08/19/15 11:40 AM) Eos Absolute 0.09 10*3 [0.00-0.50 10*3] (08/19/15 11:40 AM) Baso Absolute 0.04 10*3 [0.00-0.20 10*3] (08/19/1540 AM) Chemistry Most recent to 1 oldest [...] AM) Creatinine Lvl 1.06 mg/dL [0.72-1.25 mg/dL] (08/19/1540 AM) eGFR [>60 mL/min] >60 mL/min 1 (08/19/1540 AM) Calcium Lvl 9.4 mg/dL [8.9-10.5 mg/dL] (08/19/1540 AM) Albumin Lvl [3.5-5.0 4.2 gm/dL gm/dL] (08/19/1540 AM) Total Protein 7.0 gm/dL [6.4-8.3 gm/dL] (08/19/1540 AM) Globulin [1.8-4.0 2.8 gm/dL gm/dL] (08/19/1540 AM) ALT [0-55 U/L] 27 U/L (08/19/1540 AM) AST [5-34 U/L] 20 U/L (08/19/1540 AM) Alk Phos [40-150 67 U/L U/L] (08/19/1540 AM) Bili Total [0.2-1.2 0.6 mg/dL mg/dL] (10/22/15 11:40 AM) TSH with Reflex Free 0.96 [...] applications, or slings as instructed. Only take [id number] or prescription medicines for pain, discomfort, or [...] 01/06/2013 Document Reviewed: ExitCare Patient Information 2015 [employer]. This information is not intended to replace [...] was offered and deferred by the patient. Guillain-Welch The patient's issue is nearly or completely [...] # 5 tabs, 0 Refill( s), [id number], 1 tabs Oral Daily,x5 days predniSONE, 20 mg 1 tabs, Oral, Daily, X 5 days, # 5 tabs, 0 Refill(s), Pharmacy: [facility] #[id number], 1 tabs Oral Daily,x5 days CBC w/ Differential Comprehensive Metabolic Panel Urinalysis with Culture if Indicated XR Elbow 2 Views Right
[2017-03-03] MEDS ORDERED: NORMAL SALINE 1,000 ML IV ONE (09:58)
--- NOTE | 2017-03-03 10:05 | NUR ---
IVL IV LOCK STARTED ON FIRST ATTEMPT AND BLOOD SENT TO LAB.
[2017-03-03 10:16] LABS: BASOPHILS % (AUTO) 0.4 % (0-2); EOSINOPHILS # (AUTO) 0.2 T/MM3 (0-0.5); HCT - HEMATOCRIT 35.8 % (41-53); HGB - HEMOGLOBIN 12.4 GM/DL (13.5-17.5); IMMATURE GRANULOCYTE # (AUTO) 0.01 T/MM3 (0.00-0.03); IMMATURE GRANULOCYTE % (AUTO) 0.1 % (0.0-0.5); LYMPHOCYTES # (AUTO) 1.2 T/MM3 (1-4.8); LYMPHOCYTES % (AUTO) 17.4 % (23-45); MEAN CORPUSCULAR HGB 30.2 UUG (26-34); MEAN CORPUSCULAR HGB CONC(MCHC 34.6 GM/DL (31-37); MEAN CORPUSCULAR VOLUME 87.3 UM3 (80-100); MEAN PLATELET VOLUME 10.9 UM3 (9.4-12.4); MONOCYTES # (AUTO) 0.5 T/MM3 (0-0.8); MONOCYTES % (AUTO) 6.8 % (0-9.0); NEUTROPHILS % (AUTO) 72.3 % (33-66)
--- OUTSIDE RECORDS SUMMARY | 2017-03-03 10:19 | XMS REPORT | Continuity of Care Document ---
Author Author [facility] Organization [facility] Address Unknown Phone Unavailable Allergies Active Description [...] 6.5 NA 5.0-8.0 Protein Negative Negative Specific [place] 1.030 NA 1.003-1.030 UA Collection type Voided NA Urobilinogen 1.0 mg/dL <1.0 Encounters ACCT No. Visit Date/Time Discharge Status Pt. Type Provider Facility Loc./Unit Complaint [id number] 08/16/2016 07:34:00 2015 23:59:00 DIS Outpatient Aubrey Butts [facility] Ortho tcpa RCK R ELBOW AND NPC L ELBOW REQ INJ [id number] 04/07/2016 13:20:00 2015 23:59:00 DIS Outpatient Rafael Bobby [facility] New FM med check [id number] 01/20/2016 08:35:00 2015 23:59:00 DIS Outpatient Jeanine Cain [facility] New FM Left knee pain [id number] 12/27/2015 07:20:00 2015 23:59:00 DIS Outpatient Aubrey Butts [facility] FC Ortho cDISCUSS RT ELBOW PAIN [id number] 11/19/2015 11:12:00 2015 23:59:00 DIS Outpatient Jeanine Cain [facility] New FM SORE INSIDE MOUTH [id number] 11/01/2015 15:11:00 2015 23:59:00 DIS Outpatient Rafael Bobby [facility] New FM Weight loss [id number] 09/27/2015 13:53:00 2014 23:59:00 DIS Outpatient Rafael Bobby [facility] New FM fu lab and Xray [id number] 08/19/2015 11:05:00 2014 23:59:00 DIS Outpatient Rafael Bobby [facility] New FM tounge is split open wont heal [id number] 05/10/2015 10:54:00 2014 23:59:00 DIS Outpatient Rafael Bobby [facility] New FM bp check [id number] 12/08/2014 15:33:00 2014 23:59:00 DIS Outpatient Rafael Bobby [facility] New FM discuss appetite [id number] 10/30/2014 12:53:00 2014 23:59:00 DIS Outpatient Rafael Bobby [facility] New FM flu like symptoms [id number] 10/26/2014 14:10:00 2013 23:59:00 DIS Outpatient Rafael Bobby [facility] New FM med check [id number] 09/30/2014 12:33:00 2013 23:59:00 DIS Outpatient Nick Galindo [facility] FC April LT L2-3 TRANF, L/BPM/NRN/NPN [id number] 09/29/2014 08:01:00 2013 23:59:00 DIS Outpatient Greg Limon S [facility] FC April RCK MRI RESULTS BACK/NRN [id number] 11/03/2015 14:24:00 ACT Outpatient Aubrey Butts [facility] W21 Ortho Rt elbow pain req injection [id number] 03/24/2015 16:20:00 Document Registration [id number] 01/28/2015 15:22:00 Document Registration [id number] 01/21/2015 23:59:00 Document Registration
--- NOTE | 2017-03-03 10:20 | NUR ---
IV FLUIDS IV FLUID BOLUS STARTED.
[2017-03-03 10:28] LABS: ALBUMIN 4.1 G/DL (3.5-5.0); ALBUMIN/GLOBULIN RATIO 1.3 RATIO (1.1-2.2); ALKALINE PHOSPHATASE 77 U/L (38-126); ALT (SGPT) 43 U/L (21-72); ANION GAP 12 MEQ/L (5-15); AST (SGOT) 23 U/L (17-59); BUN/CREATININE RATIO 15 RATIO (6-26); CALCIUM 8.9 MG/DL (8.4-10.2); CHLORIDE 98 MEQ/L (98-107); CO2 - CARBON DIOXIDE 30 MEQ/L (22-30); CREATININE 0.8 MG/DL (0.8-1.5); GLOMERULAR FILTRATION RATE 100; GLUCOSE 105 MG/DL (75-110); SODIUM 140 MEQ/L (134-144); TOTAL PROTEIN 7.2 G/DL (6.3-8.2)
[2017-03-03] MEDS ORDERED: MELO-273 PO (10:55)
[2017-03-03] MEDS ORDERED: TRAM50TA4 PO (10:55)
[2017-03-03] MEDS ORDERED: ATOR40TA PO (10:55)
[2017-03-03] MEDS ORDERED: FLUT9.9S (10:55)
--- NOTE | 2017-03-03 11:00 | NUR ---
ELIMINATION PT.UP TO BATHROOM TO URINATE. UA COLLECTED AND SENT TO LAB.
[2017-03-03 11:14] LABS: BLOOD, URINE NEGATIVE (NEGATIVE); COLOR,URINE YELLOW (YELLOW); LEUKOCYTE ESTERASE ,URINE NEGATIVE (NEGATIVE); NITRITE,URINE NEGATIVE (NEGATIVE); UROBILINOGEN,URINE 0.2 EU/DL (NORMAL)
--- NOTE | 2017-03-03 11:41 | ERPDOC ---
Departure Disposition Decision Date: March 03, 2017 Disposition Decision Time: 11:46 Disposition: 01 DISCHARGED HOME, SELF-CARE Impression Impression Impression: Primary Impression: Oral thrush Severity: Moderate Condition: Improved Seen By: Physician only Referrals: SY WALTON (Family) 1 Week Patient Instructions: Oral Candidiasis (ED) Problems/Meds/Labs Reviewed?: Yes Medications reviewed and manag: Yes Additional Instructions: You have thrush (a fungal infection of the mouth and tongue). This explains your sore throat and 'tongue splitting' symptoms. Take the nystatin as directed and follow up with your doctor to make sure that things are improving. Follow up care ordered?: Yes Mental Status: Alert, Oriented Scripts Nystatin (Nystatin) 100,000 Unit/1 Ml Oral.susp 5 ML PO QID for 14 Days, ML 5 ml swish and swallow four times a day. Prov: FEBRUARYMARYJO DO 03/03/17 HPI - General Medical General Chief Complaint: General Stated Complaint: TONGUE SWELLING, CANNOT SLEEP, GAGGING Time Seen by Provider: 09:58 Source: patient, family Exam Limitations: no limitations HPI - General Medical Initial Comments 56yo man presents with tongue and throat pain for the last 4 days. Pt had back surgery on Sunday, since awakening, he has had throat and tongue pain. Pt was on atbx while admitted; thinks that his sx are directly related to the switch from norco to percocets. Occurred At: other Onset: Rapid Duration: 1 week Pain Scale: Now & Worst: 4/10 Severity: moderate Modifying Factors: IMPROVES WITH: immobilization, WORSE WITH: eating Associated Symptoms: other Hx of Similar Symptoms: No Allergies: Coded Allergies: Penicillins (Verified Allergy, Intermediate, SOB-RASH, 03/03/17) Past History Past Medical History Metabolic: hypertension GI: GERD Neurological: other Musculoskeletal: back pain, neck pain Psychological: anxiety, personality disorder Surgical History General: hernia, other Vaccines Hx Influenza Vaccination: No Hx Pneumococcal Vaccination: No Hx Tetanus, Diptheria, Pertuss: Yes (05/25/13) Social History Sexuality: female partner Review of Systems ENMT Mouth/Throat: painful swallowing, sore throat All other Systems All Other Systems: Reviewed and Negative Physical Exam General General Nourishment: well nourished, well developed, appears stated age, no acute distress, adult, obese General Body Habitus: well groomed Vitals and Pain First Documented Vital Signs Date Time Temp Pulse Resp B/P Pulse Ox O2 Delivery O2 Flow Rate FiO2 03/03/17 09:42 98.5 105 20 146/65 96 Room Air Weight: Kilograms: 105.100 Height (feet): 5 Height (inches): 6.00 Triage Pain Scale: RN VS reviewed by Provider: Yes Eyes (brief) Eyes Brief: found: EOMI, PERRL, not found: scleral icterus ENMT (brief) ENMT Brief: FOUND: TM clear, TM good light reflex, ear canals clear, mucosa moist, normal tonsils, pharnyx erythema Comments White plaques on pts tongue and throughout his oropharynx. Neck (brief) Neck: FOUND: trachea midline, NOT FOUND: JVD, adenopathy, thyromegaly Respiratory (brief) Respiratory: FOUND: clear all miranda, equal bilaterally, symmetrical, NOT FOUND : rales, wheezes Cardiovascular (brief) Cardiac: FOUND: regular rate, regular rhythm, NOT FOUND: click, gallop, murmur , pedal edema, peripheral edema, rub Capillary Refill: <2 sec Pulses: all distal extremities, equal, strong Abdomen (brief) Abdominal Brief: FOUND: bowel normo active x4, soft, NOT FOUND: distended, hepatosplenomegaly, pulsatile mass, tender Lymphatic (brief) Lymphatic Brief: NOT FOUND: adenopathy, lymphedema Musculoskeletal (brief) Musculoskeletal Brief: FOUND: spasm (Paraspinal), NOT FOUND: deformity, loss of motion, tenderness Integumentary (brief) Integumentary Brief: FOUND: pink, warm Neurologic (brief) Neurological Brief: FOUND: CN w/o gross def to obs, DTR 2/4 all extremities, gait w/o gross def to obs, motor-no gross deficits, sensory-no gross deficits, NOT FOUND: Babinski Psychiatric (brief) Psychiatric Brief: FOUND: alert, normal affect, oriented Differential Diagnoses Considering: Drug Overdose, Hypo/Hyperglycemia, Hypo/Hyperkalemia, Hypo/ Hypernatremia, Medication Effect, Metabolic Progress Results/Orders Orders Procedure Category Date Status Time Iv Lock (Ed Only) EDM 03/03/17 Transmitted 09:58 Nothing By Mouth (Ed EDM 03/03/17 Transmitted Only) 09:58 Cbc W/Auto LAB 03/03/17 Complete Diff-Reflex Manual 09:58 Cmp - Comprehensive LAB 03/03/17 Complete Metabolic 09:58 Ua, Dip Wreflex LAB 03/03/17 Complete Microsc & Back Order Clerk 09:58 Normal Saline (Normal PHA 03/03/17 Complete Saline Iv) 09:58 Nystatin (Nystatin PHA 03/03/17 Complete Susp.) 11:45 Lab Results Laboratory Tests Test 03/03/17 10:08 03/03/17 11:06 White Blood Count 7.0T/MM3 Red Blood Count 4.10M/MM3 Hemoglobin 12.4GM/DL Hematocrit 35.8% Mean Corpuscular Volume 87.3UM3 Mean Corpuscular Hemoglobin 30.2UUG Mean Corpuscular Hemoglobin Concent 34.6GM/DL RDW Standard Deviation 38.1FL Platelet Count 167T/MM3 Mean Platelet Volume 10.9UM3 Immature Granulocyte % (Auto) 0.1% Neutrophils (%) (Auto) 72.3% Lymphocytes (%) (Auto) 17.4% Monocytes (%) (Auto) 6.8% Eosinophils (%) (Auto) 3.0% Basophils (%) (Auto) 0.4% Absolute Immature Granulocyte (auto 0.01T/MM3 Absolute Neutrophils (auto) 5.0T/MM3 Absolute Lymphocytes (auto) 1.2T/MM3 Absolute Monocytes (auto) 0.5T/MM3 Absolute Eosinophils (auto) 0.2T/MM3 Absolute Basophils (auto) 0.0T/MM3 Turbidity < 20 Sodium Level 140MEQ/L Potassium Level 4.0MEQ/L Chloride Level 98MEQ/L Carbon Dioxide Level 30MEQ/L Anion Gap 12MEQ/L Blood Urea Nitrogen 12.0MG/DL Creatinine 0.8MG/DL Glomerular Filtration Rate Calc 100 BUN/Creatinine Ratio 15RATIO Glucose Level 105MG/DL Calculated Osmolality 269MOSM/KG Calcium Level 8.9MG/DL Total Bilirubin 1.10MG/DL Icterus Index < 2 Aspartate Amino Transf (AST/SGOT) 23U/L Alanine Aminotransferase (ALT/SGPT) 43U/L Alkaline Phosphatase 77U/L Total Protein 7.2G/DL Albumin 4.1G/DL Globulin 3.1G/DL Albumin/Globulin Ratio 1.3RATIO Chemistry Specimen Hemolysis 18 Urine Collection Type Cleancatch-midstream Urine Color Yellow Urine Turbidity Clear Urine pH 5.5 Urine Specific [place] <=1.005 Urine Protein Negative Urine Glucose (UA) Negative Urine Ketones Negative Urine Blood Negative Urine Nitrite Negative Urine Bilirubin Negative Urine Urobilinogen 0.2EU/DL Urine Leukocyte Esterase Negative Urinalysis Comment Microscopic not ind. Medications Current ED Medications Sodium Chloride (Normal Saline IV) 1,000 ml @ 0 mls/hr Q0M ONCE IV Last administered on 03/03/17 10:20; Start 03/03/17 at 09:58; Stop 03/03/17 at 09:59; Status DC Nystatin (Nystatin Susp.) 5 ml O ONCE PO Last administered on 03/03/17 11:52; Start 03/03/17 at 11:45; Stop 03/03/17 at 11:46; Status DC Progress Progress 56yo man with thrush. Pt has some risk factors for this, including age, recent multi-atbx use, intubation, etc. Will treat with nystatin; f/u with PCM. Discussed dx, prognosis, and tx with pt who voices understanding. MARYJO KUO DO March 03, 2017 11:41
[2017-03-03] MEDS ORDERED: NYSTATIN 500,000 units/5ml Susp UD PO ONE (11:45)
[2017-03-03] MEDS ORDERED: NYST5ORA7 PO (11:48)
--- NOTE | 2017-03-03 11:52 | NUR ---
NYSTATIN NYSTATIN SWISHED AND SWALLOWED.
--- NOTE | 2017-03-03 11:55 | NUR ---
DISMISSAL NOTE DISMISSAL INSTRUCTIONS GIVEN TO PT. AND NO FURTHER QUESTIONS. PT. LEFT ED AMBULATORY WITH .
[2017-03-03 14:20] VITALS: BP 147/87; PULSE 90; RESP 18; O2SAT 98
== END 2017-03-03 11:55 | disposition home or self-care (01) ==
LOC: ED 09:39
DX: B37.0 Candidal stomatitis (principal)
CPT/HCPCS: 80053; 81003; 85025; 96360; 99284; J7030